=== PATIENT | female | born 1945 | race Caucasian/White ===

== ENCOUNTER → 2017-02-26 | Outpatient (CLI) | payer OTHER ==
[2016-12-06 22:26] VITALS: BP 129/63
[2017-02-26 12:50] LABS: ALBUMIN 3.3 g/dL (3.4-5.0); CARBON DIOXIDE 29.6 mmol/L (21-32); CHOL/HDL RATIO 3.7 (0.0-5.0); COR CA(FOR HYPOALB) 9.6 mg/dL (8.5-10.1); CREATININE 1.37 mg/dL (0.55-1.02); PHOSPHORUS 3.8 mg/dL (2.6-4.7)
[2017-02-26 12:51] LABS: HEMOGLOBIN A1C 8.4 % (4.5-6.2)
[2017-02-26 12:58] LABS: BASOPHILS # (AUTO) 0.1 X10^3/uL (0.0-0.1); BASOPHILS % (AUTO) 0.6 % (0.2-1.0); EOSINOPHILS # (AUTO) 0.2 x10^3/uL (0.0-0.2); EOSINOPHILS % (AUTO) 2.6 % (0.9-2.9); HEMATOCRIT 37.9 % (36.0-47.0); HEMOGLOBIN 12.4 g/dL (12.0-16.0); LYMPHOCYTES # (AUTO) 2.9 X10^3/uL (1.3-2.9); LYMPHOCYTES % (AUTO) 32.7 % (21.0-51.0); MEAN CORPUSCULAR HEMOGLOBIN 28.3 pg (27.0-34.0); MEAN CORPUSCULAR HGB CONC 32.8 g/dL (33.0-35.0); MEAN CORPUSCULAR VOLUME 86.3 fL (80.0-100.0); MEAN PLATELET VOLUME 7.5 fL (7.4-11.0); MONOCYTES # (AUTO) 0.6 x10^3/uL (0.3-0.8); MONOCYTES % (AUTO) 6.6 % (0.0-13.0); NEUTROPHILS # (AUTO) 5.1 x10^3/uL (2.2-4.8); NEUTROPHILS % (AUTO) 57.5 % (42.0-75.0); PLATELET COUNT 293 X10^3/uL (150.0-450.0); RED BLOOD COUNT 4.38 X10^6/uL (3.5-5.4); RED CELL DISTRIBUTION WIDTH 13.5 % (11.6-16.5); WHITE BLOOD COUNT 8.9 X10^3/uL (3.6-10.0)
== END ==
LOC: LAB 12:07
PROVIDERS: ATTEND Internal Medicine
DX: I12.9 Hypertensive chronic kidney disease with stage 1 through stage 4 chronic kidney disease, or unspecified chronic kidney disease (principal); N18.3 Chronic kidney disease, stage 3 (moderate); E11.9 Type 2 diabetes mellitus without complications
CPT/HCPCS: 36415; 80061; 80069; 83036; 84550; 85025

== ENCOUNTER → 2017-06-03 | Outpatient (CLI) | payer OTHER ==
[2016-12-06 22:26] VITALS: BP 129/63
--- NOTE | 2017-06-04 08:25 | RAD ---
History: Low back pain Study: Lumbar spine complete Findings: Multiple views of the lumbar spine are compared to previous study of April 01, 2016. There is a mild to moderate levoscoliosis. Surgical clips in the right upper quadrant are again demonstrat ed. Previous L4 and L5 complete laminectomies are again identified. There is disk space narrowing an d mild to moderate endplate spurring at multiple levels most severe at the L3-4 through L5-S1 levels unchanged from the previous study. There are moderate degenerative changes of the right apophyseal joints. Impression: Spondylosis, degenerative disc disease and osteoarthrosis of the lumbar spine unchanged. Previous L4 and L5 laminectomies. Reported By:
== END | disposition home or self-care (01) | DRG 552 ==
LOC: RAD 17:48
PROVIDERS: ATTEND Specialist
DX: M54.5 Low back pain (principal); M47.896 Other spondylosis, lumbar region; M51.36 Other intervertebral disc degeneration, lumbar region; Z98.890 Other specified postprocedural states
CPT/HCPCS: 72110

== ENCOUNTER → 2017-07-06 | Outpatient (CLI) | payer OTHER ==
[2016-12-06 22:26] VITALS: BP 129/63
[2017-07-06 12:40] LABS: BASOPHILS # (AUTO) 0.1 X10^3/uL (0.0-0.1); BASOPHILS % (AUTO) 0.9 % (0.2-1.0); EOSINOPHILS # (AUTO) 0.2 x10^3/uL (0.0-0.2); EOSINOPHILS % (AUTO) 1.9 % (0.9-2.9); HEMATOCRIT 36.7 % (36.0-47.0); HEMOGLOBIN 12.3 g/dL (12.0-16.0); LYMPHOCYTES # (AUTO) 2.9 X10^3/uL (1.3-2.9); LYMPHOCYTES % (AUTO) 33.2 % (21.0-51.0); MEAN CORPUSCULAR HEMOGLOBIN 28.8 pg (27.0-34.0); MEAN CORPUSCULAR HGB CONC 33.6 g/dL (33.0-35.0); MEAN CORPUSCULAR VOLUME 85.6 fL (80.0-100.0); MEAN PLATELET VOLUME 7.2 fL (7.4-11.0); MONOCYTES # (AUTO) 0.7 x10^3/uL (0.3-0.8); MONOCYTES % (AUTO) 7.7 % (0.0-13.0); NEUTROPHILS # (AUTO) 4.9 x10^3/uL (2.2-4.8); NEUTROPHILS % (AUTO) 56.3 % (42.0-75.0); PLATELET COUNT 299 X10^3/uL (150.0-450.0); RED BLOOD COUNT 4.29 X10^6/uL (3.5-5.4); RED CELL DISTRIBUTION WIDTH 13.7 % (11.6-16.5); WHITE BLOOD COUNT 8.7 X10^3/uL (3.6-10.0)
[2017-07-06 12:53] LABS: HEMOGLOBIN A1C 7.6 % (4.5-6.2)
[2017-07-06 12:55] LABS: ALBUMIN 3.6 g/dL (3.4-5.0); BLOOD UREA NITROGEN 24 mg/dL (7-18); CALCIUM 9.2 mg/dL (8.5-10.1); CARBON DIOXIDE 32.4 mmol/L (21-32); CHLORIDE 100 mmol/L (98-107); CHOL/HDL RATIO 2.7 (0.0-5.0); CHOLESTEROL 144 mg/dL (0-200); CREATININE 1.43 mg/dL (0.55-1.02); HDL CHOLESTEROL 53 mg/dL (40-60); PHOSPHORUS 3.9 mg/dL (2.6-4.7); SODIUM 138 mmol/L (136-145); TRIGLYCERIDES 175 mg/dL (0-150); eGFR BLACK RACES 47 (>60); eGFR NON BLACK RACES 39 (>60)
== END | disposition home or self-care (01) | DRG 639 ==
LOC: LAB 12:18
PROVIDERS: ATTEND Internal Medicine
DX: E11.9 Type 2 diabetes mellitus without complications (principal); I12.9 Hypertensive chronic kidney disease with stage 1 through stage 4 chronic kidney disease, or unspecified chronic kidney disease; N18.3 Chronic kidney disease, stage 3 (moderate)
CPT/HCPCS: 36415; 80061; 80069; 83036; 85025

== ENCOUNTER → 2017-10-05 | Outpatient (CLI) | payer OTHER ==
[2016-12-06 22:26] VITALS: BP 129/63
[2017-10-05 10:46] LABS: HEMOGLOBIN A1C 7.5 % (4.5-6.2)
[2017-10-05 10:53] LABS: BASOPHILS % (AUTO) 0.6 % (0.2-1.0); EOSINOPHILS # (AUTO) 0.2 x10^3/uL (0.0-0.2); EOSINOPHILS % (AUTO) 2.2 % (0.9-2.9); HEMATOCRIT 36.4 % (36.0-47.0); HEMOGLOBIN 12.2 g/dL (12.0-16.0); LYMPHOCYTES # (AUTO) 1.9 X10^3/uL (1.3-2.9); LYMPHOCYTES % (AUTO) 27.9 % (21.0-51.0); MEAN CORPUSCULAR HGB CONC 33.4 g/dL (33.0-35.0); MEAN CORPUSCULAR VOLUME 86.8 fL (80.0-100.0); MEAN PLATELET VOLUME 7.4 fL (7.4-11.0); MONOCYTES # (AUTO) 0.5 x10^3/uL (0.3-0.8); MONOCYTES % (AUTO) 7.5 % (0.0-13.0); NEUTROPHILS # (AUTO) 4.3 x10^3/uL (2.2-4.8); NEUTROPHILS % (AUTO) 61.8 % (42.0-75.0); PLATELET COUNT 311 X10^3/uL (150.0-450.0); RED CELL DISTRIBUTION WIDTH 13.5 % (11.6-16.5); WHITE BLOOD COUNT 6.9 X10^3/uL (3.6-10.0)
[2017-10-05 10:56] LABS: ALBUMIN 3.2 g/dL (3.4-5.0); CALCIUM 8.7 mg/dL (8.5-10.1); CARBON DIOXIDE 31.3 mmol/L (21-32); CHOL/HDL RATIO 2.8 (0.0-5.0); COR CA(FOR HYPOALB) 9.3 mg/dL (8.5-10.1); CREATININE 1.27 mg/dL (0.55-1.02); FREE T4 (FREE THYROXINE) 1.03 ng/dL (0.76-1.46); PHOSPHORUS 3.5 mg/dL (2.6-4.7); TSH (3RD GENERATION) 0.932 uIU/mL (0.358-3.74); URIC ACID 4.6 mg/dL (2.6-6.0)
== END ==
LOC: LAB 10:14
PROVIDERS: ATTEND Internal Medicine
DX: I12.9 Hypertensive chronic kidney disease with stage 1 through stage 4 chronic kidney disease, or unspecified chronic kidney disease (principal); N18.3 Chronic kidney disease, stage 3 (moderate); E11.22 Type 2 diabetes mellitus with diabetic chronic kidney disease; E03.8 Other specified hypothyroidism
CPT/HCPCS: 36415; 80061; 80069; 83036; 84439; 84443; 84550; 85025

== ENCOUNTER → 2017-11-30 | Outpatient (CLI) | payer OTHER ==
[2016-12-06 22:26] VITALS: BP 129/63
[2017-11-30 16:45] LABS: BASOPHILS # (AUTO) 0.1 X10^3/uL (0.0-0.1); BASOPHILS % (AUTO) 0.7 % (0.2-1.0); EOSINOPHILS # (AUTO) 0.3 x10^3/uL (0.0-0.2); HEMATOCRIT 37.3 % (36.0-47.0); HEMOGLOBIN 12.7 g/dL (12.0-16.0); LYMPHOCYTES # (AUTO) 3.1 X10^3/uL (1.3-2.9); LYMPHOCYTES % (AUTO) 33.6 % (21.0-51.0); MEAN CORPUSCULAR HEMOGLOBIN 29.3 pg (27.0-34.0); MEAN CORPUSCULAR VOLUME 86.2 fL (80.0-100.0); MONOCYTES # (AUTO) 0.6 x10^3/uL (0.3-0.8); MONOCYTES % (AUTO) 6.9 % (0.0-13.0); NEUTROPHILS # (AUTO) 5.2 x10^3/uL (2.2-4.8); NEUTROPHILS % (AUTO) 55.8 % (42.0-75.0); PLATELET COUNT 329 X10^3/uL (150.0-450.0); RED BLOOD COUNT 4.33 X10^6/uL (3.5-5.4); RED CELL DISTRIBUTION WIDTH 13.2 % (11.6-16.5); WHITE BLOOD COUNT 9.3 X10^3/uL (3.6-10.0)
[2017-11-30 16:52] LABS: ALBUMIN 3.3 g/dL (3.4-5.0); CALCIUM 9.1 mg/dL (8.5-10.1); CARBON DIOXIDE 32.7 mmol/L (21-32); COR CA(FOR HYPOALB) 9.7 mg/dL (8.5-10.1); CREATININE 1.36 mg/dL (0.55-1.02); TOTAL PROTEIN 7.5 g/dL (6.4-8.2)
== END ==
LOC: LAB 16:05
PROVIDERS: ATTEND Nurse Practitioner Family
DX: I10 Essential (primary) hypertension (principal); E56.8 Deficiency of other vitamins; Z79.899 Other long term (current) drug therapy
CPT/HCPCS: 36415; 80053; 82607; 83918; 85025

== ENCOUNTER → 2018-02-08 | Outpatient (CLI) | payer OTHER ==
[2016-12-06 22:26] VITALS: BP 129/63
[2018-02-08 11:38] LABS: BASOPHILS # (AUTO) 0.1 X10^3/uL (0.0-0.1); BASOPHILS % (AUTO) 0.9 % (0.2-1.0); EOSINOPHILS # (AUTO) 0.2 x10^3/uL (0.0-0.2); HEMATOCRIT 36.6 % (36.0-47.0); HEMOGLOBIN 12.3 g/dL (12.0-16.0); LYMPHOCYTES # (AUTO) 3.6 X10^3/uL (1.3-2.9); LYMPHOCYTES % (AUTO) 36.2 % (21.0-51.0); MEAN CORPUSCULAR HEMOGLOBIN 29.5 pg (27.0-34.0); MEAN CORPUSCULAR HGB CONC 33.7 g/dL (33.0-35.0); MEAN CORPUSCULAR VOLUME 87.5 fL (80.0-100.0); MEAN PLATELET VOLUME 6.9 fL (7.4-11.0); MONOCYTES # (AUTO) 0.7 x10^3/uL (0.3-0.8); MONOCYTES % (AUTO) 7.4 % (0.0-13.0); NEUTROPHILS # (AUTO) 5.3 x10^3/uL (2.2-4.8); NEUTROPHILS % (AUTO) 53.5 % (42.0-75.0); PLATELET COUNT 384 X10^3/uL (150.0-450.0); RED BLOOD COUNT 4.18 X10^6/uL (3.5-5.4); RED CELL DISTRIBUTION WIDTH 14.3 % (11.6-16.5); WHITE BLOOD COUNT 9.8 X10^3/uL (3.6-10.0)
[2018-02-08 11:47] LABS: HEMOGLOBIN A1C 7.3 %
[2018-02-08 11:54] LABS: CREATININE,URINE 137.81 mg/dL (29-226)
[2018-02-08 11:56] LABS: ALBUMIN 3.3 g/dL (3.4-5.0); CALCIUM 8.8 mg/dL (8.5-10.1); CARBON DIOXIDE 29.9 mmol/L (21-32); COR CA(FOR HYPOALB) 9.4 mg/dL (8.5-10.1); CREATININE 1.51 mg/dL (0.55-1.02); FREE T4 (FREE THYROXINE) 1.24 ng/dL (0.76-1.46); TOTAL PROTEIN 7.4 g/dL (6.4-8.2); TSH (3RD GENERATION) 3.422 uIU/mL (0.358-3.74)
[2018-02-08 11:58] LABS: MICROALBUMIN,URINE 97.5 mg/L
== END ==
LOC: LAB 11:01
PROVIDERS: ATTEND Nurse Practitioner Family
DX: E78.4 Other hyperlipidemia (principal); I10 Essential (primary) hypertension; E11.21 Type 2 diabetes mellitus with diabetic nephropathy; E03.8 Other specified hypothyroidism
CPT/HCPCS: 36415; 80053; 80061; 82043; 83036; 84439; 84443; 84481; 85025

== ENCOUNTER → 2018-03-08 | Outpatient (CLI) | payer OTHER ==
[2016-12-06 22:26] VITALS: BP 129/63
[2018-03-08 11:20] LABS: BASOPHILS % (AUTO) 0.3 % (0.2-1.0); EOSINOPHILS # (AUTO) 0.2 x10^3/uL (0.0-0.2); EOSINOPHILS % (AUTO) 2.3 % (0.9-2.9); HEMATOCRIT 37.5 % (36.0-47.0); HEMOGLOBIN 12.5 g/dL (12.0-16.0); LYMPHOCYTES # (AUTO) 3.8 X10^3/uL (1.3-2.9); LYMPHOCYTES % (AUTO) 37.2 % (21.0-51.0); MEAN CORPUSCULAR HEMOGLOBIN 29.6 pg (27.0-34.0); MEAN CORPUSCULAR HGB CONC 33.4 g/dL (33.0-35.0); MEAN CORPUSCULAR VOLUME 88.4 fL (80.0-100.0); MONOCYTES # (AUTO) 0.7 x10^3/uL (0.3-0.8); MONOCYTES % (AUTO) 7.1 % (0.0-13.0); NEUTROPHILS # (AUTO) 5.5 x10^3/uL (2.2-4.8); NEUTROPHILS % (AUTO) 53.1 % (42.0-75.0); PLATELET COUNT 367 X10^3/uL (150.0-450.0); RED BLOOD COUNT 4.25 X10^6/uL (3.5-5.4); RED CELL DISTRIBUTION WIDTH 13.5 % (11.6-16.5); WHITE BLOOD COUNT 10.3 X10^3/uL (3.6-10.0)
[2018-03-08 11:32] LABS: HEMOGLOBIN A1C 7.7 %
[2018-03-08 11:38] LABS: ALBUMIN 3.4 g/dL (3.4-5.0); BLOOD UREA NITROGEN 15 mg/dL (7-18); CALCIUM 8.4 mg/dL (8.5-10.1); CARBON DIOXIDE 29.8 mmol/L (21-32); CHLORIDE 101 mmol/L (98-107); CHOL/HDL RATIO 2.8 (0.0-5.0); CHOLESTEROL 145 mg/dL (0-200); CREATININE 1.51 mg/dL (0.55-1.02); HDL CHOLESTEROL 51 mg/dL (40-60); PHOSPHORUS 4.5 mg/dL (2.6-4.7); SODIUM 140 mmol/L (136-145); TRIGLYCERIDES 160 mg/dL (0-150); eGFR BLACK RACES 44 (>60); eGFR NON BLACK RACES 36 (>60)
[2018-03-08 11:46] LABS: CREATININE,URINE 109.96 mg/dL (29-226)
[2018-03-08 11:47] LABS: MICROALBUMIN,URINE 124.7 mg/L
--- NOTE | 2018-03-08 15:51 | RAD ---
HISTORY: Chronic back pain Study: 3 views of the thoracic spine. Comparison: None Findings: Mild dextroscoliosis of the thoracic spine. Significant multilevel degenerative disc disease. Verteb ral body heights are grossly maintained. IMPRESSION: 1. Multilevel degenerative disc disease. Reported By:
--- NOTE | 2018-03-08 15:51 | RAD ---
HISTORY: Nontraumatic back pain Study: 5 views of the lumbar spine Comparison: None. Findings: Mild levoscoliosis. Severe multilevel degenerative disc disease with facet disease as well. Vertebra l body heights are normal. Sacroiliac joints are unremarkable. No evidence for acute fracture can be identified. IMPRESSION: 1. Severe multilevel degenerative disc and facet disease. Reported By:
== END | disposition home or self-care (01) | DRG 639 ==
LOC: LAB 10:53
PROVIDERS: ATTEND Nurse Practitioner Family
DX: E11.9 Type 2 diabetes mellitus without complications (principal); E78.4 Other hyperlipidemia; I12.9 Hypertensive chronic kidney disease with stage 1 through stage 4 chronic kidney disease, or unspecified chronic kidney disease; N18.3 Chronic kidney disease, stage 3 (moderate); M54.5 Low back pain; M54.6 Pain in thoracic spine
CPT/HCPCS: 36415; 72072; 72110; 80061; 80069; 82043; 83036; 85025

== ENCOUNTER 2023-05-21 13:35 | Observation (INO) ==
--- NOTE | 2023-05-21 14:07 | DR.EXTPAIN ---
HPI Time seen Time Seen by Provider: 05/21/23 14:05 Complaint/Symptoms Chief Complaint Doctor Comments: FELL 3 DAYS AGO, NOW HAS HEAD,NECK AND LOW BACK PAIN. PMH PMH Past Medical History: Anxiety, Arthritis, Diabetes, Dyslipidemia, Migraines and Hypothyroidism Past Surgical History: Yes Surgical History: Cholecystectomy and Ortho Surgery Family History Family Medical History: Cancer Social History Do you use any recreational Drugs:: No ROS Review of Systems Constitutional: Other (HEAD NECK AND LOW BACK PAIN AFTER A FALL) Eyes: No Symptoms Reported ENTM: No Symptoms Reported Respiratoy: No Symptoms Reported Cardiovascular: No Symptoms Reported Gastrointestinal/Abdominal: No Symptoms Reported Genitourinary: No Symptoms Reported Neurological: No Symptoms Reported Musculoskeletal: Back Pain, Muscle Pain and Neck Pain Integumentary: No Symptoms Reported Hematologic/Lymphatic: No Symptoms Reported Endocrine: No Symptoms Reported Psychiatric: No Symptoms Reported PE Vital Signs Vitals: Vital Signs Temperature 98.1 F Pulse Rate 76 Pulse Rate 74 Pulse Rate 76 Pulse Rate 74 Pulse Rate 75 Pulse Rate 75 Pulse Rate 80 Pulse Rate 76 Pulse Rate 75 Pulse Rate 74 Pulse Rate 86 Respiratory Rate 16 Respiratory Rate 14 Respiratory Rate 19 Respiratory Rate 17 Respiratory Rate 19 Respiratory Rate 12 Respiratory Rate 23 Respiratory Rate 11 Respiratory Rate 13 Respiratory Rate 12 Respiratory Rate 16 Blood Pressure 151/67 Blood Pressure 159/69 Blood Pressure 161/69 Blood Pressure 151/68 Blood Pressure 150/66 Blood Pressure 151/69 Blood Pressure 177/71 O2 Sat by Pulse Oximetry 100 O2 Sat by Pulse Oximetry 99 O2 Sat by Pulse Oximetry 100 O2 Sat by Pulse Oximetry 97 O2 Sat by Pulse Oximetry 97 O2 Sat by Pulse Oximetry 96 O2 Sat by Pulse Oximetry 99 O2 Sat by Pulse Oximetry 97 O2 Sat by Pulse Oximetry 97 O2 Sat by Pulse Oximetry 98 O2 Sat by Pulse Oximetry 96 General Limitations: Physical Limitation (CAN NOT AMBULATE 2ND TO PAIN IN LOW BACK) General Appearance: In Distress (MODERATE DISTRESS) Head Head Exam: Normal Inspection, Atraumatic and Normocephalic Eyes Eye exam: Normal Appearance, PERRL and EOMI ENT ENT Exam: Normal Exam, Normal Oropharynx and Normal External Ear Exam Neck Neck Exam: Normal Inspection, Full ROM and Trachea Midline Chest Chest Inspection: Normal Inspection and Symmetric Chest Wall Rise Respiratory Respiratory Exam: Normal Lung Sounds Bilat Respiratory Exam: Bilateral: Clear to Auscultation Cardiovascular Cardiovascular Exam: Regular Rate and Normal Rhythm Abdominal Exam Abdominal Exam: Normal Inspection, Normal Bowel Sounds and Soft Extremities Extremities Exam: Normal Inspection Upper Extremities Shoulder Exam: Normal Inspection and Full ROM Arm Exam: Normal Inspection Elbow Exam: Normal Inspection Forearm Exam: Normal Inspection Hand Exam: Normal Inspection Neuromotor Exam: Normal Exam Lower Extremities Hip/Pelvis Exam: Normal Inspection Upper Leg Exam: Normal Inspection Knee Exam: Normal Inspection Lower Leg Exam: Normal Inspection Ankle Exam: Normal Inspection Foot/Toe Exam: Normal Inspection Gait Exam: Not Tested/Not Observed Back Back Exam: Tenderness (LOW LUMBAR AREA) Neurological Neurological Exam: Alert, Oriented X3 and CN II-XII Intact Psychiatric Psychiatric Exam: Depressed Skin Skin Exam: Warm, Dry and Intact MDM Differential Diagnosis Differential Diagnosis: Contusion (HEAD), Fracture (SKULL FRACTURE) and Sprain (LUMBAR STRAIN) COURSE Treatment Treatment: PATIENT REMAINED RELATIVELY STABLE DURINGER EVALUATION. CT OF HEAD SH OWER R PARIAETAL CONTUSION BUT NO FRACTURE. CT OF C-SPINE AND L-SPINE SHOWED DEGENERATIVE CHANGES WITHOUT FRACTURE. CONTACT WAS MADE WITH DR DANIELS [id number] ABD HE ACCEPTED THE PATIENT FOR OBSERVATION FOR DECONDITIONING AND PAIN MANAGEMENT. PATIENT WAS MADE AWARE OF THE INTENT AND WAS AGREABLE TO THE ADMISSION. [facility]OR Labs Reviewed Laboratory Results Reviewed?: Yes 05/21/23 14:28 05/21/23 14:28 Laboratory: WBC 8.6 X10^3/uL (3.6-10.0) 05/21/23 14: RBC 3.95 X10^6/uL (3.5-5.4) 05/21/23 14:28 Hgb 10.5 g/dL (12.0-16.0) L 05/21/23 14:28 Hct 33.1 % (36.0-47.0) L 05/21/23 14:28 MCV 83.9 fL (80.0-100.0) 05/21/23 14: MCH 26.7 pg (27.0-34.0) L 05/21/23 14:28 MCHC 31.8 g/dL (33.0-35.0) L 05/21/23 14:28 RDW 15.0 % (11.6-16.5) 05/21/23 14:28 Plt Count 283 X10^3/uL (150.0-450.0) 05/21/23 14:28 MPV 7.5 fL (7.4-11.0) 05/21/23 14:28 Neut % (Auto) 66.1 % (42.0-75.0) 05/21/23 14:28 Lymph % (Auto) 22.2 % (21.0-51.0) 05/21/23 14:28 [place] % (Auto) 7.6 % (0.0-13.0) 05/21/23 14:28 Eos % (Auto) 3.3 % (0.9-2.9) H 05/21/23 14:28 Baso % (Auto) 0.8 % (0.2-1.0) 05/21/23 14:28 Neut # (Auto) 5.7 x10^3/uL (2.2-4.8) H 05/21/23 14:28 Lymph # (Auto) 1.9 X10^3/uL (1.3-2.9) 05/21/23 14:28 [place] # (Auto) 0.7 x10^3/uL (0.3-0.8) 05/21/23 14:28 Eos # (Auto) 0.3 x10^3/uL (0.0-0.2) H 05/21/23 14:28 Baso # (Auto) 0.1 X10^3/uL (0.0-0.1) 05/21/23 14:28 Absolute Nucleated RBC 0.0 /100WBC 05/21/23 14:28 Sodium 135 mmol/L (136-145) L 05/21/23 14:28 Corrected Sodium 140 mmol/L (136-145) 05/21/23 14:28 Potassium 4.4 mmol/L (3.5-5.1) 05/21/23 14:28 Chloride 98 mmol/L (98-107) 05/21/23 14:28 Carbon Dioxide 30.7 mmol/L (21-32) 05/21/23 14:28 BUN 30 mg/dL (7-18) H 05/21/23 14:28 Creatinine 2.08 mg/dL (0.55-1.02) H 05/21/23 14:28 Est GFR (MDRD) Af Amer 30 (>60) L 05/21/23 14:28 Est GFR (MDRD) Non-Af 25 (>60) L 05/21/23 14:28 Glucose 304 mg/dL (65-99) H 05/21/23 14:28 Calcium 8.4 mg/dL (8.5-10.1) L 05/21/23 14:28 Corrected Calcium 9.1 mg/dL (8.5-10.1) 05/21/23 14:28 Total Bilirubin 0.10 mg/dL (0.2-1.0) L 05/21/23 14:28 AST 75 Units/L (15-37) H 05/21/23 14:28 ALT 27 Units/L (12-78) 05/21/23 14:28 Alkaline Phosphatase 97 Units/L (46-116) 05/21/23 14:28 Total Protein 6.5 g/dL (6.4-8.2) 05/21/23 14:28 Albumin 3.1 g/dL (3.4-5.0) L 05/21/23 14:28 Globulin 3.4 g/dL (2.5-4.5) 05/21/23 14:28 Albumin/Globulin Ratio 0.9 Ratio (1.1-2.1) L 05/21/23 14:28 Opioid Opioid Risk Tool Total: 0 Total Score Risk Category: Low Risk Copyright: Turner BOWLING predicting aberrant behaviors Discharge Plan Diagnosis Discharge Problem: Physical deconditioning, Hyperglycemia, Chronic pain Discharge Plan Patient Disposition: 09 ADMITTED INPATIENT Condition: Stable Orders to Discharge Patient Discharge Orders: Discharge (Routine); Ordered 05/21/23 Ordered By: Alfonso Jiménez Transfer (Routine); Ordered 05/21/23 Ordered By: Alfonso Jiménez
[2023-05-21 14:32] VITALS: BMI 35.2
[2023-05-21 14:41] LABS: BASOPHILS # (AUTO) 0.1 X10^3/uL (0.0-0.1); BASOPHILS % (AUTO) 0.8 % (0.2-1.0); EOSINOPHILS # (AUTO) 0.3 x10^3/uL (0.0-0.2); EOSINOPHILS % (AUTO) 3.3 % (0.9-2.9); HEMATOCRIT 33.1 % (36.0-47.0); HEMOGLOBIN 10.5 g/dL (12.0-16.0); LYMPHOCYTES # (AUTO) 1.9 X10^3/uL (1.3-2.9); LYMPHOCYTES % (AUTO) 22.2 % (21.0-51.0); MEAN CORPUSCULAR HEMOGLOBIN 26.7 pg (27.0-34.0); MEAN CORPUSCULAR HGB CONC 31.8 g/dL (33.0-35.0); MEAN CORPUSCULAR VOLUME 83.9 fL (80.0-100.0); MEAN PLATELET VOLUME 7.5 fL (7.4-11.0); MONOCYTES # (AUTO) 0.7 x10^3/uL (0.3-0.8); MONOCYTES % (AUTO) 7.6 % (0.0-13.0); NEUTROPHILS # (AUTO) 5.7 x10^3/uL (2.2-4.8); NEUTROPHILS % (AUTO) 66.1 % (42.0-75.0); PLATELET COUNT 283 X10^3/uL (150.0-450.0); RED BLOOD COUNT 3.95 X10^6/uL (3.5-5.4); WHITE BLOOD COUNT 8.6 X10^3/uL (3.6-10.0)
[2023-05-21 14:57] LABS: ALBUMIN 3.1 g/dL (3.4-5.0); CALCIUM 8.4 mg/dL (8.5-10.1); CARBON DIOXIDE 30.7 mmol/L (21-32); COR CA(FOR HYPOALB) 9.1 mg/dL (8.5-10.1); CREATININE 2.08 mg/dL (0.55-1.02); POTASSIUM 4.4 mmol/L (3.5-5.1); TOTAL PROTEIN 6.5 g/dL (6.4-8.2)
--- NOTE | 2023-05-21 15:37 | CT ---
HISTORYFALL, MACKAY, NECK AND BACK PAINSTUDYBRAIN W/O CONCOMPARISONNone availableTECHNIQUEMultiple helical images of the brain from the vertex to the occiput were obtained. Coronal and sagittal reformats were performed. Dose reduction techniques including Automated Exposure Control (AEC) and adjustment of mA and kV were utilized.FINDINGSModerate-sized contusion posterior right frontal scalp. There is diffuse cerebral cortical atrophy with bilateral periventricular and deep white matter hypoattenuation, findings are nonspecific; however, most likely represent sequela of chronic microvascular disease.[No acute intraparenchymal hemorrhage or mass can be identified.] [No extra-axial fluid collections are seen.] [No alteration in the attenuation of the brain parenchyma can be identified to suggest acute or subacute ischemic change.] [The ventricular system is symmetric and nondilated.] [The extracranial structures are grossly unremarkable.]IMPRESSIONModerate-sized posterior right parietal scalp contusion without subjacent fracture.No acute intracranial hemorrhage.Moderate diffuse cerebral cortical atrophy with bilateral periventricular and deep white matter hypoattenuation, findings are nonspecific; however, most likely represent sequela of chronic microvascular disease.Electronically signed by: CARMELO DONOVAN (May 21, 2023 15:36:38)
--- NOTE | 2023-05-21 15:39 | CT ---
HISTORYFALL, MACKAY, NECK AND BACK PAINSTUDYLUMBAR SPINE W/O CONCOMPARISONTECHNIQUEMultiple axial images of the lumbar spine were obtained from the thoracolumbar junction to the sacrum without the administration of IV contrast. Sagittal and coronal reformats were performed and reviewed. Dose reduction techniques including Automated Exposure Control (AEC) and adjustment of mA and kV were utilized.FINDINGSThere is approximately 14 degrees of levoscoliosis in the lower thoracic and in the lumbar spine. There is fusion at the L4-L5 disc and there has been a posterior decompression. There is multilevel disc degeneration. There is no vertebral compression fracture identified. There is no fracture of the posterior elements. There is no significant spinal stenosis at any level. There is moderate right L3 neural foraminal narrowing. There is moderate systemic atherosclerosis. There is no evidence of a sacral fracture.IMPRESSIONDegenerative and postsurgical change as described but no acute abnormality identified.Electronically signed by: Troy Padilla (May 21, 2023 15:37:26)
--- NOTE | 2023-05-21 15:52 | CT ---
HISTORYFALL, MACKAY, NECK AND BACK PAINSTUDYCERVICAL SPINE W/O CONCOMPARISONTECHNIQUEMultiple axial images of the cervical spine were obtained from the skull base to the thoracic inlet without administration of IV contrast. Sagittal and coronal reformats were performed and reviewed. Dose reduction techniques including Automated Exposure Control (AEC) and adjustment of mA and kV were utilized.FINDINGSThe alignment is anatomic. There is no vertebral compression fracture. There is fairly severe atlantoaxial degeneration and disc degeneration from C4-C7 with prominent posterior disc osteophyte formation. There is facet hypertrophy but there is no fracture of the posterior elements. Fluid is noted in the right mastoid. There is narrowing of the AP dimension of spinal canal at the C4-C5 level to 7 mm which is moderate spinal stenosis. At C5-C6 there is left paracentral disc osteophyte formation which likely impinges the left side of the cord. The AP dimension of the spinal canal is 8 mm at the C6-C7 level. There is severe left C5 and left C6 neural foraminal narrowing.IMPRESSIONDegeneration as described but no acute abnormality.Electronically signed by: Troy Padilla (May 21, 2023 15:51:36)
[2023-05-21] MEDS ORDERED: NORCO 10/325 TAB PO PRN (17:34)
[2023-05-21 18:34] LABS: BILIRUBIN,URINE NEGATIVE (NEGATIVE); BLOOD/HEMOGLOBIN,URINE NEGATIVE (NEGATIVE); GLUCOSE, URINE 1+ (NEGATIVE); KETONES,URINE NEGATIVE (NEGATIVE); LEUKOCYTE ESTERASE ,URINE NEGATIVE (NEGATIVE); NITRITES,URINE NEGATIVE (NEGATIVE); PROTEIN,URINE 2+ (NEGATIVE); UROBILINOGEN,URINE NORMAL (NORMAL)
[2023-05-21 18:44] LABS: APPEARANCE,URINE CLEAR (CLEAR); BACTERIA,URINE NEGATIVE /HPF (NEGATIVE); COLOR,URINE YELLOW (YELLOW); RBC,URINE NONE SEEN /HPF (0-3); SQUAMOUS EPITHELIAL CELL,UR RARE /HPF (NEGATIVE)
[2023-05-21] MEDS ORDERED: DEMADEX PO PRN (18:58)
[2023-05-21] MEDS: SNACK - Diabetic Appropriate PO SCH (19:30)
[2023-05-21] MEDS: LIORESAL PO SCH (21:29)
[2023-05-21] MEDS: CRESTOR TAB 10 MG PO SCH (21:29)
[2023-05-21] MEDS: LANTUS SC SCH (21:29)
[2023-05-22 06:07] LABS: BASOPHILS % (AUTO) 0.6 % (0.2-1.0); EOSINOPHILS # (AUTO) 0.3 x10^3/uL (0.0-0.2); EOSINOPHILS % (AUTO) 3.6 % (0.9-2.9); HEMATOCRIT 32.4 % (36.0-47.0); HEMOGLOBIN 10.5 g/dL (12.0-16.0); LYMPHOCYTES # (AUTO) 3.2 X10^3/uL (1.3-2.9); LYMPHOCYTES % (AUTO) 41.5 % (21.0-51.0); MEAN CORPUSCULAR HEMOGLOBIN 26.9 pg (27.0-34.0); MEAN CORPUSCULAR HGB CONC 32.4 g/dL (33.0-35.0); MEAN CORPUSCULAR VOLUME 83.1 fL (80.0-100.0); MEAN PLATELET VOLUME 7.5 fL (7.4-11.0); MONOCYTES # (AUTO) 0.6 x10^3/uL (0.3-0.8); MONOCYTES % (AUTO) 8.2 % (0.0-13.0); NEUTROPHILS # (AUTO) 3.6 x10^3/uL (2.2-4.8); NEUTROPHILS % (AUTO) 46.1 % (42.0-75.0); PLATELET COUNT 291 X10^3/uL (150.0-450.0); RED CELL DISTRIBUTION WIDTH 14.6 % (11.6-16.5); WHITE BLOOD COUNT 7.8 X10^3/uL (3.6-10.0)
[2023-05-22 06:31] LABS: ALANINE AMINOTRANSFERASE 26 Units/L (12-78); ALBUMIN 2.9 g/dL (3.4-5.0); ALKALINE PHOSPHATASE 91 Units/L (46-116); ASPARTATE AMINO TRANSFERASE 62 Units/L (15-37); BLOOD UREA NITROGEN 24 mg/dL (7-18); CALCIUM 8.4 mg/dL (8.5-10.1); CARBON DIOXIDE 29.9 mmol/L (21-32); CHLORIDE 100 mmol/L (98-107); COR CA(FOR HYPOALB) 9.3 mg/dL (8.5-10.1); CREATININE 1.52 mg/dL (0.55-1.02); GLUCOSE 99 mg/dL (65-99); POTASSIUM 3.8 mmol/L (3.5-5.1); SODIUM 136 mmol/L (136-145); TOTAL PROTEIN 6.2 g/dL (6.4-8.2); eGFR NON BLACK RACES 35 (>60)
[2023-05-22] MEDS ORDERED: CONSULT PHARMACY - POTASSIUM & MAGNESIUM XX SCH (07:00)
[2023-05-22] MEDS ORDERED: LEXAPRO ONE (08:19)
[2023-05-22] MEDS ORDERED: K-DUR TAB 20 MEQ PO SCH (09:00)
[2023-05-22] MEDS: LOTENSIN TAB 10 MG PO SCH (09:30)
[2023-05-22] MEDS: LIORESAL PO SCH ×4 (09:30→20:37)
[2023-05-22] MEDS: AMARYL TAB 4 MG PO SCH (09:30)
[2023-05-22] MEDS: LEXAPRO PO SCH (09:31)
[2023-05-22] MEDS: ASPIRIN 81 MG CHEWTAB PO SCH (09:32)
[2023-05-22] MEDS: SYNTHROID 112 mcg TAB PO SCH (09:32)
[2023-05-22] MEDS: MAG-OX TAB PO SCH ×2 (09:33→11:02)
[2023-05-22] MEDS: NORCO 10/325 TAB PO PRN ×2 (09:35→15:59)
[2023-05-22] MEDS: NS 1,000 ML IV 1,000 ML IV SCH ×2 (11:01→22:51)
--- NOTE | 2023-05-22 11:25 | RAD ---
HISTORYSOBSTUDYPortable AP chestCOMPARISONNoneFINDINGSHeart size normal with clear lungs and pleural spaces. Surgical hardware left shoulder.IMPRESSIONNo active chest disease demonstrated.Electronically signed by: MELISSA GONZALEZ (May 22, 2023 11:24:28)
[2023-05-22] MEDS: TORADOL 30 MG VIAL IVP PRN ×2 (11:56→20:40)
--- NOTE | 2023-05-22 17:32 | DR.H&P ---
H&P - History & Physical for Day of: H&P Date: 05/21/23 ([facility]) - Chief Complaint Chief Complaint: HEAD, NECK, AND LOW BACK PAIN - History of Present Illness History of Present Illness: IS A 78 YEAR OLD PATIENT OF . SHE PRESENTED TO THE ER WITH COMPLAINTS OF HEAD, NECK, AND LOW BACK PAIN FOLLOWING A FALL 3 DAYS AGO. SHE DESCRIBES HEADACHE CONSTANT AND TROBBING. SHE RATES PAIN A 6/10. SHE DESCRIBES NECK AND BACK PAIN DULL AND INTERMITTENT. SHE RATES PAIN A 8/10. SHE DOES ADMIT TO HITTING THE RIGHT SIDE OF HER HEAD WHEN SHE FELL, BUT DENIES LOSS OF CONSCIOUSNESS. SHE REPORTS DIFFICULTY AMBULATING DUE TO SEVERE PAIN IN LOWER BACK. HER PMH INCLUDES: ANXIETY, ARTHRITIS, DM II, DYSLIPIDEMIA, MIGRAINES, HYPOTHYROIDISM, CHOLECYSTECTOMY, AND ORTHO SURGERY. ON ARRIVAL TO THE ER, HER VITALS WERE: 98.1-86-16-96%-177/71. LABS WERE OBTAINED. WBC 8.6, RBC 3.95, HGB 10.5, HCT 33.1, PLT COUNT 283, SODIUM 135, POTASSIUM 4.4, CHLORIDE 98, BUN 30, CREATININE 2.08, GLUCOSE 304, CALCIUM 8.4, TOTAL BILI 0.10, AST 75, ALT 27, ALK PHOS 97, TOTAL PROTEIN 6.5, ALBUMIN 3.1. A URINALYSIS WAS OBTAINED AND WAS UNREMARKABLE. A BRAIN CT WITHOUT CONTRAST WAS OBTAINED AND REVEALED: Moderate-sized posterior right parietal scalp contusi on without subjacent fracture. No acute intracranial hemorrhage. Moderate diffuse cerebral cortical atrophy with bilateral periventricular and deep white matter hypoattenuation, findings are nonspecific; however, most likely represent sequela of chronic microvascular disease. CT OF THE CERVICAL SPINE WAS OBRTAINED: Degeneration as described but no acute abnormality. A LUMBAR SPINE CT WAS OBTAINED AND REVEALED: There is approximately 14 degrees of levoscoliosis in the lower thoracic and in the lumbar spine. There is fusion at the L4-L5 disc and there has been a posterior decompression. There is multilevel. disc degeneration. There is no vertebral compression fracture identified. There is no fracture of the posterior elements. There is no significant spinal stenosis at any level. There is moderate right L3 neural foraminal narrowing. There is moderate systemic atherosclerosis. There is no evidence of a sacral. fracture. IN THE ER, SHE WAS GIVEN NORCO 10/325MG PO X 1 DOSE, K-DUR 20MEQ PO X 1, AD MG OX 800MG PO Q12H. SHE DENIED IMPROVEMENT IN PAIN AFTER RECEIVING THE NORCO. DECISION WAS MADE TO ADMIT PATIENT TO THE HOSPITAL FOR FURTHER EVALUATION AND TREATMENT OF DECONDITIONING, INTRACTABLE PAIN, AND HYPERGLYCEMIA, DM II. SHE WAS STARTED ON NORMAL SALINE AT 75 ML/HR, OTBS ACHS, HUMULIN R SLIDING SCALE, TORADOL 30MG IV Q8H. HER HOME MEDS OF ASPIRIN, LIORESAL, LOTENSIN, VALIUM, LEOLA APRO, AMARYL, LANTUS, SYNTHROID, AND ROSUVASTATIN WERE RESUMED. WE WILL OBTIN A LEFT HIP XRAY THIS MORNING. OTHERWISE, WE WILL FOLLOW UP WITH AM LABS AND CONTINUE TO MONITOR. TIME SPENT ON CLINICAL ASSESSMENT, REVIEWING LABS AND IMAGING, DECISION MAKING, AND DOCUMENTATION GREATER THAN 45 MINUTES. - Past Medical History Past Medical History: Dyslipidemia, Diabetes, Anxiety, Hypothyroidism, Arthritis, Migraines - Past Surgical History Surgical History: Cholecystectomy, Ortho Surgery - Family History Family Medical History: Cancer - Social History Does patient currently use any type of tobacco product: No Have you used tobacco products in the last 12 months: No Type of Tobacco Use: None Does any household member use tobacco: No Alcohol Use: None Drug Use: None - Review of Systems Constitutional: Weakness Eyes: No Symptoms Reported ENT: No Symptoms Reported Respiratory: No Symptoms Reported Cardiovascular: Light Headedness Gastrointestinal: No Symptoms Reported Genitourinary: No Symptoms Reported Musculoskeletal: Back Pain, Neck Pain Skin: No Symptoms Reported Neurological: Weakness - Physical Exam Vital Signs: Vital Signs Temperature 98.4 F Temperature 99.0 F Pulse Rate [Left] 77 Pulse Rate [Left] 78 Respiratory Rate 20 Respiratory Rate 20 Respiratory Rate 20 Respiratory Rate 20 Respiratory Rate 20 Respiratory Rate 20 Respiratory Rate 20 Respiratory Rate 20 Blood Pressure [Right Arm] 153/67 Blood Pressure [Right Arm] 134/63 O2 Sat by Pulse Oximetry 96 O2 Sat by Pulse Oximetry 95 Oriented: Normal Eyes: Normal Ear: Normal Nose: Normal Throat: Normal Respiratory: Diminished Throughout Cardiovascular: Normal : Normal Auscultation: Bowel Sounds: Normal Palpation: Normal Tenderness: Normal Skin: Normal Musculoskeletal: Back:Lumbar, Tender Psychiatric: Normal Mood Description: Calm Affect: Normal Speech Pattern: Clear - Assessment/Plan (1) Physical deconditioning Status: Acute Plan: ADMIT, PT/OT, NORMAL SALINE AT 75 ML/HR, OTBS ACHS, HUMULIN R SLIDING SCA LE, TORADOL 30MG IV Q8H. HER HOME MEDS OF ASPIRIN, LIORESAL, LOTENSIN, VALIUM, LEXAPRO, AMARYL, LANTUS, SYNTHROID, AND ROSUVASTATIN WERE RESUMED. (2) Dyslipidemia associated with type 2 diabetes mellitus Status: None (3) Hyperglycemia Status: Acute (4) Arthritis Status: Acute (5) Dyslipidemia Status: Chronic (6) Hypothyroidism Qualifiers: Hypothyroidism type: acquired Qualified Code(s): E03.9 - Hypothyroidism, unspecified Status: Chronic - Allergies Allergies/Adverse Reactions: Allergies Allergy/AdvReac Type Severity Reaction Status Date / Time carisoprodol [Soma] Allergy Unknown Dizziness; Verified 05/21/23 14:34 Itching morphine [MS Contin] Allergy Unknown Verified 05/21/23 14:34 trazodone [Desyrel] Allergy Unknown Verified 05/21/23 14:34 - Medications Home Medications: Home Medications Medication Instructions Recorded Confirmed aspirin 81 mg chewable tablet 81 mg PO QDAY 05/21/23 05/21/23 benazepril 10 mg tablet 10 mg PO QDAY 05/21/23 05/21/23 diazepam 5 mg tablet 5 mg PO BID PRN 05/21/23 05/21/23 escitalopram oxalate 20 mg tablet 20 mg PO QDAY 05/21/23 05/21/23 glimepiride 4 mg tablet 4 mg PO QDAY 05/21/23 05/21/23 levothyroxine 112 mcg tablet 112 mcg PO QDAY 05/21/23 05/21/23 rosuvastatin 20 mg tablet 20 mg PO QPM 05/21/23 05/21/23 Previous Rx's Medication Instructions Recorded torsemide 10 mg tablet 10 mg PO QAM PRN edema #60 tabs 12/07/22 insulin glargine 100 unit/mL 70 unit (0.7 mL) subcut QPM for 02/04/23 subcutaneous solution (Lantus diabetes mellitus #40 mL U-100 Insulin) baclofen 20 mg tablet 20 mg PO QID for muscle spasm 30 02/26/23 days #120 tabs hydrocodone 10 mg-acetaminophen 1 tab PO TID PRN pain 30 days #90 04/15/23 325 mg tablet tabs
[2023-05-22] MEDS: CRESTOR TAB 10 MG PO SCH (20:37)
[2023-05-22] MEDS: SNACK - Diabetic Appropriate PO SCH (20:58)
[2023-05-22] MEDS: LANTUS SC SCH (21:02)
[2023-05-23] MEDS: NS 1,000 ML IV 1,000 ML IV SCH ×4 (00:13→23:05)
[2023-05-23] MEDS: NORCO 10/325 TAB PO PRN ×2 (00:20→08:14)
[2023-05-23 05:02] LABS: BASOPHILS # (AUTO) 0.1 X10^3/uL (0.0-0.1); BASOPHILS % (AUTO) 0.7 % (0.2-1.0); EOSINOPHILS # (AUTO) 0.4 x10^3/uL (0.0-0.2); EOSINOPHILS % (AUTO) 4.9 % (0.9-2.9); HEMATOCRIT 30.1 % (36.0-47.0); LYMPHOCYTES # (AUTO) 3.6 X10^3/uL (1.3-2.9); LYMPHOCYTES % (AUTO) 44.3 % (21.0-51.0); MEAN CORPUSCULAR HEMOGLOBIN 27.7 pg (27.0-34.0); MEAN CORPUSCULAR HGB CONC 33.2 g/dL (33.0-35.0); MEAN CORPUSCULAR VOLUME 83.4 fL (80.0-100.0); MEAN PLATELET VOLUME 7.5 fL (7.4-11.0); MONOCYTES # (AUTO) 0.6 x10^3/uL (0.3-0.8); MONOCYTES % (AUTO) 7.5 % (0.0-13.0); NEUTROPHILS # (AUTO) 3.4 x10^3/uL (2.2-4.8); NEUTROPHILS % (AUTO) 42.6 % (42.0-75.0); PLATELET COUNT 289 X10^3/uL (150.0-450.0); RED BLOOD COUNT 3.61 X10^6/uL (3.5-5.4); RED CELL DISTRIBUTION WIDTH 14.8 % (11.6-16.5); WHITE BLOOD COUNT 8.1 X10^3/uL (3.6-10.0)
[2023-05-23 05:17] LABS: ALANINE AMINOTRANSFERASE 22 Units/L (12-78); ALBUMIN 2.8 g/dL (3.4-5.0); ALKALINE PHOSPHATASE 85 Units/L (46-116); ASPARTATE AMINO TRANSFERASE 54 Units/L (15-37); BLOOD UREA NITROGEN 25 mg/dL (7-18); CALCIUM 7.9 mg/dL (8.5-10.1); CARBON DIOXIDE 29.1 mmol/L (21-32); CHLORIDE 101 mmol/L (98-107); COR CA(FOR HYPOALB) 8.9 mg/dL (8.5-10.1); CREATININE 1.61 mg/dL (0.55-1.02); GLUCOSE 110 mg/dL (65-99); POTASSIUM 4.2 mmol/L (3.5-5.1); SODIUM 135 mmol/L (136-145); TOTAL PROTEIN 5.9 g/dL (6.4-8.2); eGFR NON BLACK RACES 33 (>60)
[2023-05-23] MEDS ORDERED: CONSULT PHARMACY - POTASSIUM & MAGNESIUM XX SCH (06:00)
[2023-05-23] MEDS: TORADOL 30 MG VIAL IVP PRN (07:02)
[2023-05-23] MEDS ORDERED: LEXAPRO ONE (07:09)
--- NOTE | 2023-05-23 07:27 | RAD ---
HISTORYHip painSTUDYLeft hip four viewsCOMPARISONNoneFINDINGSThere is no evidence for fracture or dislocation, femoral head deformity or bone destruction. The submitted images are of limited technical quality with reduced detail.Slight joint narrowing with bone production at acetabular margin.IMPRESSIONOsteoarthrosis left hip; no acute findings.Electronically signed by: MELISSA GONZALEZ (May 23, 2023 07:26:47)
[2023-05-23] MEDS: VALIUM PO PRN (08:14)
[2023-05-23] MEDS: LIORESAL PO SCH ×4 (08:14→20:09)
[2023-05-23] MEDS: SYNTHROID 112 mcg TAB PO SCH (08:15)
[2023-05-23] MEDS: AMARYL TAB 4 MG PO SCH (08:15)
[2023-05-23] MEDS: LEXAPRO PO SCH (08:15)
[2023-05-23] MEDS: ASPIRIN 81 MG CHEWTAB PO SCH (08:15)
[2023-05-23] MEDS: LOTENSIN TAB 10 MG PO SCH (08:15)
[2023-05-23] MEDS: MAG-OX TAB PO SCH ×2 (08:16→10:15)
--- NOTE | 2023-05-23 10:32 | PCM.PROG ---
Progress Note - Progress Note for Day of Date of Exam: 05/23/23 - Subjective Subjective: IS CURRENTLY OBSERVATION STATUS FOR TREATMENT OF PHYSICAL DECONDITIONING, LOW BACK PAIN, LEFT HIP PAIN, AND NECK PAIN FOLLOWING A FALL AT HOME. TODAY, SHE IS ALERT AND ORIENTED, LYING IN BED ON MORNING ROUNDS. SHE HAS HAD AN UNEVENTFUL NIGHT. SHE CONTINUES TO COMPLAIN OF PAIN TO THE HEAD, NECK, LEFT HIP, AND LOW BACK, BUT REPORTS SLIGHT IMPROVEMENT IN SYMPTOMS SINCE YESTERDAY. ON EXAMINATION, HEART IS REGULAR IN RATE AND RHYTHM. BILATERAL LUNGS ARE NOTED WITH DIMINISHED LUNG SOUNDS THROUGHOUT. ABDOMEN IS ROUND, SOFT, AND NON-TENDER WITH NORMAL BOWEL SOUNDS NOTED IN ALL QUADRANTS. GOOD RANGE OF MOTION NOTED TO UPPER AND LOWER EXTREMTIES WITH NO EDEMA NOTED. HER VITALS THIS MORNING ARE: 97.6-68-18-95%-159/67. LABS WERE OBTAINED. WBC 8.1, RBC 3.61, HGB 10.0, HCT 30.1, PLT COUNT 289, SODIUM 135, POTASSIUM 4.2, CHLORIDE 101, BUN 25, CREATININE 1.61, GLUCOSE 110, CALCIUM 7.9, MAGNESIUM 1.9, AST 54, ALT 22, ALK PHOS 85, TOTAL PROTEIN 5.9, ALBUMIN 2.8. WE ORDERED A LEFT HIP XRAY YESTERDAY. IT REVEALED: Osteoarthrosis left hip; no acute findings. CHEST XRAY WAS ALSO OBTAINED YESTERDAY AND REVEALED: No active chest disease demonstrated. SHE IS CURRENTLY RECEIVING NORMAL SALINE AT 75 ML/HR, OTBS ACHS, HUMULIN R SLIDING SCALE, TORADOL 30MG IV Q8H. HER HOME MEDS OF ASPIRIN, LIORESAL, LOTENSIN, VALIUM, LEXAPRO, AMARYL, LANTUS, SYNTHROID, AND ROSUVASTATIN WERE RESUMED. WE WILL CONTINUE WITH CURRENT PLAN OF CARE TODAY. OTHERWISE, WE WILL FOLLOW UP WITH AM LABS AND CONTINUE TO MONITOR. TIME SPENT ON CLINICAL ASSESSMENT, REVIEWING LABS AND IMAGING, DECISION MAKING, AND DOCUMENTATION GREATER THAN 45 MINUTES. - Past Medical Family Social History Past Med/Fam/Surg Hx: No changes since H&P Allergies: Allergies carisoprodol [Soma] Allergy (Unknown, Verified 05/21/23 14:34) Dizziness; Itching Reason: Drug allergy morphine [MS Contin] Allergy (Unknown, Verified 05/21/23 14:34) Comments: GI tract burning when takes ms contin, intolerable Side effect trazodone [Desyrel] Allergy (Unknown, Verified 05/21/23 14:34) Comments: to sedating, makes her feel like a "ZOMBIE" - Review of Systems ROS: No change since H&P - Vital Signs and I&O's Vital Signs: Vital Signs Temperature 97.6 F Temperature 97.8 F Pulse Rate [Left] 68 Pulse Rate [Left] 74 Respiratory Rate 18 Respiratory Rate 18 Respiratory Rate 18 Respiratory Rate 18 Respiratory Rate 20 Respiratory Rate 20 Blood Pressure [Right Arm] 159/67 Blood Pressure [Right Arm] 170/77 O2 Sat by Pulse Oximetry 95 O2 Sat by Pulse Oximetry 96 Intake and Output: Intake & Output 05/20/23 05/21/23 05/22/23 05/23/23 11:59 11:59 11:59 11:59 Intake Total 520 / 520 4207 / 4207 Balance 520 / 520 4207 / 4207 - Physical Exam Oriented: Normal Eyes: Normal Ear: Normal Nose: Normal Throat: Normal Cardiovascular: Normal : Normal Auscultation: Bowel Sounds: Normal Palpation: Normal Tenderness: Normal Skin: Normal Musculoskeletal: Left, Hip, Back:Lumbar, Tender Psychiatric: Normal Mood Description: Calm Affect: Normal Speech Pattern: Clear, Appropriate - Laboratory and Diagnostics Result Diagrams: 05/23/23 04:35 05/23/23 04:35 Labs: Laboratory WBC 8.1 X10^3/uL (3.6-10.0) 05/23/23 04:35 RBC 3.61 X10^6/uL (3.5-5.4) 05/23/23 04:35 Hgb 10.0 g/dL (12.0-16.0) L 05/23/23 04:35 Hct 30.1 % (36.0-47.0) L 05/23/23 04:35 MCV 83.4 fL (80.0-100.0) 05/23/23 04:35 MCH 27.7 pg (27.0-34.0) 05/23/23 04:35 MCHC 33.2 g/dL (33.0-35.0) 05/23/23 04:35 RDW 14.8 % (11.6-16.5) 05/23/23 04:35 Plt Count 289 X10^3/uL (150.0-450.0) 05/23/23 04:35 MPV 7.5 fL (7.4-11.0) 05/23/23 04:35 Neut % (Auto) 42.6 % (42.0-75.0) 05/23/23 04:35 Lymph % (Auto) 44.3 % (21.0-51.0) 05/23/23 04:35 [place] % (Auto) 7.5 % (0.0-13.0) 05/23/23 04:35 Eos % (Auto) 4.9 % (0.9-2.9) H 05/23/23 04:35 Baso % (Auto) 0.7 % (0.2-1.0) 05/23/23 04:35 Neut # (Auto) 3.4 x10^3/uL (2.2-4.8) 05/23/23 04:35 Lymph # (Auto) 3.6 X10^3/uL (1.3-2.9) H 05/23/23 04:35 [place] # (Auto) 0.6 x10^3/uL (0.3-0.8) 05/23/23 04:35 Eos # (Auto) 0.4 x10^3/uL (0.0-0.2) H 05/23/23 04:35 Baso # (Auto) 0.1 X10^3/uL (0.0-0.1) 05/23/23 04:35 Absolute Nucleated RBC 0.0 /100WBC 05/23/23 04:35 Sodium 135 mmol/L (136-145) L 05/23/23 04:35 Corrected Sodium TNP 05/23/23 04:35 Potassium 4.2 mmol/L (3.5-5.1) 05/23/23 04:35 Chloride 101 mmol/L (98-107) 05/23/23 04:35 Carbon Dioxide 29.1 mmol/L (21-32) 05/23/23 04:35 BUN 25 mg/dL (7-18) H 05/23/23 04:35 Creatinine 1.61 mg/dL (0.55-1.02) H 05/23/23 04:35 Est GFR (MDRD) Af Amer 40 (>60) L 05/23/23 04:35 Est GFR (MDRD) Non-Af 33 (>60) L 05/23/23 04:35 Glucose 110 mg/dL (65-99) H 05/23/23 04:35 POC Glucose (mg/dL) 112 mg/dL (65-99) H 05/23/23 05:10 Calcium 7.9 mg/dL (8.5-10.1) L 05/23/23 04:35 Corrected Calcium 8.9 mg/dL (8.5-10.1) 05/23/23 04:35 Magnesium 1.9 mg/dL (2.0-2.9) L 05/23/23 04:35 Total Bilirubin 0.20 mg/dL (0.2-1.0) 05/23/23 04:35 AST 54 Units/L (15-37) H 05/23/23 04:35 ALT 22 Units/L (12-78) 05/23/23 04:35 Alkaline Phosphatase 85 Units/L (46-116) 05/23/23 04:35 Total Protein 5.9 g/dL (6.4-8.2) L 05/23/23 04:35 Albumin 2.8 g/dL (3.4-5.0) L 05/23/23 04:35 Globulin 3.1 g/dL (2.5-4.5) 05/23/23 04:35 Albumin/Globulin Ratio 0.9 Ratio (1.1-2.1) L 05/23/23 04:35 Specimen Type Clean catch urine 05/21/23 18:15 Urine Color Yellow (YELLOW) 05/21/23 18:15 Urine Appearance Clear (CLEAR) 05/21/23 18:15 Urine pH 6.0 (5.0 - 8.0) 05/21/23 18:15 Ur Specific [place] 1.020 (1.000-1.030) 05/21/23 18:15 Urine Protein 2+ (NEGATIVE) 05/21/23 18:15 Urine Glucose (UA) 1+ (NEGATIVE) 05/21/23 18:15 Urine Ketones Negative (NEGATIVE) 05/21/23 18:15 Urine Blood Negative (NEGATIVE) 05/21/23 18:15 Urine Nitrite Negative (NEGATIVE) 05/21/23 18:15 Urine Bilirubin Negative (NEGATIVE) 05/21/23 18:15 Urine Urobilinogen Normal (NORMAL) 05/21/23 18:15 Ur Leukocyte Esterase Negative (NEGATIVE) 05/21/23 18:15 Urine RBC None seen /HPF (0-3) 05/21/23 18:15 Urine WBC None seen /HPF (0-5) 05/21/23 18:15 Ur Squamous Epith Cells Rare /HPF (NEGATIVE) 05/21/23 18:15 Urine Bacteria Negative /HPF (NEGATIVE) 05/21/23 18:15 Ur Culture Indicated? No/not indicated 05/21/23 18:15 - Plan (1) Physical deconditioning Status: Acute Plan: PT/OT, NORMAL SALINE AT 75 ML/HR, OTBS ACHS, HUMULIN R SLIDING SCALE, TORADOL 30MG IV Q8H. HER HOME MEDS OF ASPIRIN, LIORESAL, LOTENSIN, VALIUM, LEXAPRO, AMARYL, LANTUS, SYNTHROID, AND ROSUVASTATIN WERE RESUMED. (2) Dyslipidemia associated with type 2 diabetes mellitus Status: None (3) Hyperglycemia Status: Acute (4) Arthritis Status: Acute (5) Dyslipidemia Status: Chronic (6) Hypothyroidism Status: Chronic Qualifiers: Hypothyroidism type: acquired Qualified Code(s): E03.9 - Hypothyroidism, unspecified
[2023-05-23] MEDS: NovoLIN R (or HumuLIN R) SUBCUT PRN ×2 (11:28→20:25)
[2023-05-23] MEDS ORDERED: ZOFRAN INJ 4 MG VIAL IVP PRN (18:46)
[2023-05-23] MEDS: CRESTOR TAB 10 MG PO SCH (20:09)
[2023-05-23] MEDS: SNACK - Diabetic Appropriate PO SCH (20:09)
[2023-05-23] MEDS: LANTUS SC SCH (20:26)
[2023-05-24] MEDS: NS 1,000 ML IV 1,000 ML IV SCH ×3 (05:10→22:07)
[2023-05-24] MEDS: NovoLIN R (or HumuLIN R) SUBCUT PRN (05:16)
[2023-05-24 05:27] LABS: BASOPHILS # (AUTO) 0.1 X10^3/uL (0.0-0.1); BASOPHILS % (AUTO) 0.9 % (0.2-1.0); EOSINOPHILS # (AUTO) 0.3 x10^3/uL (0.0-0.2); EOSINOPHILS % (AUTO) 4.5 % (0.9-2.9); HEMOGLOBIN 9.6 g/dL (12.0-16.0); LYMPHOCYTES # (AUTO) 2.3 X10^3/uL (1.3-2.9); LYMPHOCYTES % (AUTO) 33.4 % (21.0-51.0); MEAN CORPUSCULAR HEMOGLOBIN 27.5 pg (27.0-34.0); MEAN CORPUSCULAR HGB CONC 33.1 g/dL (33.0-35.0); MEAN CORPUSCULAR VOLUME 82.9 fL (80.0-100.0); MEAN PLATELET VOLUME 7.9 fL (7.4-11.0); MONOCYTES # (AUTO) 0.5 x10^3/uL (0.3-0.8); MONOCYTES % (AUTO) 7.8 % (0.0-13.0); NEUTROPHILS # (AUTO) 3.6 x10^3/uL (2.2-4.8); NEUTROPHILS % (AUTO) 53.4 % (42.0-75.0); PLATELET COUNT 263 X10^3/uL (150.0-450.0); RED CELL DISTRIBUTION WIDTH 14.7 % (11.6-16.5); WHITE BLOOD COUNT 6.7 X10^3/uL (3.6-10.0)
[2023-05-24 05:40] LABS: ALBUMIN 2.6 g/dL (3.4-5.0); CALCIUM 7.9 mg/dL (8.5-10.1); CARBON DIOXIDE 28.6 mmol/L (21-32); CREATININE 1.44 mg/dL (0.55-1.02); MAGNESIUM 1.9 mg/dL (2.0-2.9); POTASSIUM 4.5 mmol/L (3.5-5.1); TOTAL PROTEIN 5.6 g/dL (6.4-8.2)
[2023-05-24] MEDS ORDERED: CONSULT PHARMACY - POTASSIUM & MAGNESIUM XX SCH (06:00)
[2023-05-24] MEDS ORDERED: LEXAPRO ONE (08:16)
[2023-05-24] MEDS: LIORESAL PO SCH ×4 (09:02→21:39)
[2023-05-24] MEDS: LOTENSIN TAB 10 MG PO SCH (09:02)
[2023-05-24] MEDS: LEXAPRO PO SCH (09:02)
[2023-05-24] MEDS: ASPIRIN 81 MG CHEWTAB PO SCH (09:02)
[2023-05-24] MEDS: SYNTHROID 112 mcg TAB PO SCH (09:02)
[2023-05-24] MEDS: VALIUM PO PRN (09:03)
[2023-05-24] MEDS: MAG-OX TAB PO SCH ×3 (09:03→21:39)
[2023-05-24] MEDS: AMARYL TAB 4 MG PO SCH (09:03)
[2023-05-24] MEDS: LOVENOX INJ 40 MG SYR SC SCH (09:14)
[2023-05-24] MEDS ORDERED: MILK OF MAGNESIA PO PRN (20:04)
[2023-05-24] MEDS ORDERED: COLACE CAP 100 MG PO PRN (20:04)
[2023-05-24] MEDS: CRESTOR TAB 10 MG PO SCH (21:39)
[2023-05-24] MEDS: SNACK - Diabetic Appropriate PO SCH (21:40)
[2023-05-24] MEDS: LANTUS SC SCH (22:07)
[2023-05-25] MEDS: NORCO 10/325 TAB PO PRN ×2 (00:05→10:49)
[2023-05-25 06:04] LABS: BASOPHILS # (AUTO) 0.1 X10^3/uL (0.0-0.1); BASOPHILS % (AUTO) 1.1 % (0.2-1.0); EOSINOPHILS # (AUTO) 0.3 x10^3/uL (0.0-0.2); EOSINOPHILS % (AUTO) 4.1 % (0.9-2.9); HEMATOCRIT 28.6 % (36.0-47.0); HEMOGLOBIN 9.5 g/dL (12.0-16.0); LYMPHOCYTES # (AUTO) 3.2 X10^3/uL (1.3-2.9); LYMPHOCYTES % (AUTO) 39.3 % (21.0-51.0); MEAN CORPUSCULAR HEMOGLOBIN 27.6 pg (27.0-34.0); MEAN CORPUSCULAR HGB CONC 33.3 g/dL (33.0-35.0); MEAN PLATELET VOLUME 7.7 fL (7.4-11.0); MONOCYTES # (AUTO) 0.7 x10^3/uL (0.3-0.8); MONOCYTES % (AUTO) 8.3 % (0.0-13.0); NEUTROPHILS # (AUTO) 3.8 x10^3/uL (2.2-4.8); NEUTROPHILS % (AUTO) 47.2 % (42.0-75.0); PLATELET COUNT 231 X10^3/uL (150.0-450.0); RED BLOOD COUNT 3.45 X10^6/uL (3.5-5.4); RED CELL DISTRIBUTION WIDTH 14.8 % (11.6-16.5); WHITE BLOOD COUNT 8.1 X10^3/uL (3.6-10.0)
[2023-05-25 06:22] LABS: ALANINE AMINOTRANSFERASE 20 Units/L (12-78); ALBUMIN 2.7 g/dL (3.4-5.0); ALKALINE PHOSPHATASE 76 Units/L (46-116); ASPARTATE AMINO TRANSFERASE 30 Units/L (15-37); BLOOD UREA NITROGEN 17 mg/dL (7-18); CARBON DIOXIDE 31.4 mmol/L (21-32); CHLORIDE 103 mmol/L (98-107); CREATININE 1.28 mg/dL (0.55-1.02); GLUCOSE 83 mg/dL (65-99); POTASSIUM 3.9 mmol/L (3.5-5.1); SODIUM 138 mmol/L (136-145); TOTAL PROTEIN 5.6 g/dL (6.4-8.2); eGFR NON BLACK RACES 43 (>60)
[2023-05-25] MEDS: LIORESAL PO SCH ×2 (07:05→08:50)
--- NOTE | 2023-05-25 08:11 | PCM.PROG ---
Progress Note Progress Note for Day of Date of Exam: 05/24/23 Subjective Subjective: The patient is currently doing well this morning and has no new complaints. She has not seen physical therapy yet but is waiting for them to come today. We will see how she does with them and follow-up with them later on. Past Medical Family Social History Past Med/Fam/Surg Hx: No changes since H&P Allergies: Allergies carisoprodol [Soma] Allergy (Unknown, Verified 05/21/23 14:34) Dizziness; Itching Reason: Drug allergy morphine [MS Contin] Allergy (Unknown, Verified 05/21/23 14:34) Comments: GI tract burning when takes ms contin, intolerable Side effect trazodone [Desyrel] Allergy (Unknown, Verified 05/21/23 14:34) Comments: to sedating, makes her feel like a "ZOMBIE" Review of Systems ROS: No change since H&P Vital Signs and I&O's Vital Signs: Vital Signs Temperature 98.3 F Pulse Rate [Left] 60 Respiratory Rate 18 Respiratory Rate 20 Blood Pressure [Right Arm] 140/71 O2 Sat by Pulse Oximetry 97 Intake and Output: Intake & Output 05/22/23 05/23/23 05/24/23 05/25/23 11:59 11:59 11:59 11:59 Intake Total 520 / 520 4207 / 4207 3333 / 3333 2758 / 2758 Output Total 900 / 900 Balance 520 / 520 4207 / 4207 3333 / 3333 1858 / 1858 Physical Exam Oriented: Normal Eyes: Normal Ear: Normal Nose: Normal Throat: Normal Cardiovascular: Normal : Normal Auscultation: Bowel Sounds: Normal Tenderness: Normal Skin: Normal Musculoskeletal: Left, Hip, Back:Lumbar and Tender Psychiatric: Normal Mood Description: Calm Affect: Normal Speech Pattern: Clear and Appropriate Laboratory and Diagnostics 05/25/23 05:33 05/25/23 05:33 Labs: Laboratory WBC 8.1 X10^3/uL (3.6-10.0) 05/25/23 05:33 RBC 3.45 X10^6/uL (3.5-5.4) L 05/25/23 05:33 Hgb 9.5 g/dL (12.0-16.0) L 05/25/23 05:33 Hct 28.6 % (36.0-47.0) L 05/25/23 05:33 MCV 83.0 fL (80.0-100.0) 05/25/23 05:33 MCH 27.6 pg (27.0-34.0) 05/25/23 05:33 MCHC 33.3 g/dL (33.0-35.0) 05/25/23 05:33 RDW 14.8 % (11.6-16.5) 05/25/23 05:33 Plt Count 231 X10^3/uL (150.0-450.0) 05/25/23 05:33 MPV 7.7 fL (7.4-11.0) 05/25/23 05:33 Neut % (Auto) 47.2 % (42.0-75.0) 05/25/23 05:33 Lymph % (Auto) 39.3 % (21.0-51.0) 05/25/23 05:33 [place] % (Auto) 8.3 % (0.0-13.0) 05/25/23 05:33 Eos % (Auto) 4.1 % (0.9-2.9) H 05/25/23 05:33 Baso % (Auto) 1.1 % (0.2-1.0) H 05/25/23 05:33 Neut # (Auto) 3.8 x10^3/uL (2.2-4.8) 05/25/23 05:33 Lymph # (Auto) 3.2 X10^3/uL (1.3-2.9) H 05/25/23 05:33 [place] # (Auto) 0.7 x10^3/uL (0.3-0.8) 05/25/23 05:33 Eos # (Auto) 0.3 x10^3/uL (0.0-0.2) H 05/25/23 05:33 Baso # (Auto) 0.1 X10^3/uL (0.0-0.1) 05/25/23 05:33 Absolute Nucleated RBC 0.1 /100WBC 05/25/23 05:33 Sodium 138 mmol/L (136-145) 05/25/23 05:33 Corrected Sodium TNP 05/25/23 05:33 Potassium 3.9 mmol/L (3.5-5.1) 05/25/23 05:33 Chloride 103 mmol/L (98-107) 05/25/23 05:33 Carbon Dioxide 31.4 mmol/L (21-32) 05/25/23 05:33 BUN 17 mg/dL (7-18) 05/25/23 05:33 Creatinine 1.28 mg/dL (0.55-1.02) H 05/25/23 05:33 Est GFR (MDRD) Af Amer 52 (>60) L 05/25/23 05:33 Est GFR (MDRD) Non-Af 43 (>60) L 05/25/23 05:33 Glucose 83 mg/dL (65-99) 05/25/23 05:33 POC Glucose (mg/dL) 83 mg/dL (65-99) 05/25/23 05:09 Calcium 8.0 mg/dL (8.5-10.1) L 05/25/23 05:33 Corrected Calcium 9.0 mg/dL (8.5-10.1) 05/25/23 05:33 Magnesium 2.0 mg/dL (2.0-2.9) 05/25/23 05:33 Total Bilirubin 0.10 mg/dL (0.2-1.0) L 05/25/23 05:33 AST 30 Units/L (15-37) 05/25/23 05:33 ALT 20 Units/L (12-78) 05/25/23 05:33 Alkaline Phosphatase 76 Units/L (46-116) 05/25/23 05:33 Total Protein 5.6 g/dL (6.4-8.2) L 05/25/23 05:33 Albumin 2.7 g/dL (3.4-5.0) L 05/25/23 05:33 Globulin 2.9 g/dL (2.5-4.5) 05/25/23 05:33 Albumin/Globulin Ratio 0.9 Ratio (1.1-2.1) L 05/25/23 05:33 Specimen Type Clean catch urine 05/21/23 18:15 Urine Color Yellow (YELLOW) 05/21/23 18:15 Urine Appearance Clear (CLEAR) 05/21/23 18:15 Urine pH 6.0 (5.0 - 8.0) 05/21/23 18:15 Ur Specific [place] 1.020 (1.000-1.030) 05/21/23 18:15 Urine Protein 2+ (NEGATIVE) 05/21/23 18:15 Urine Glucose (UA) 1+ (NEGATIVE) 05/21/23 18:15 Urine Ketones Negative (NEGATIVE) 05/21/23 18:15 Urine Blood Negative (NEGATIVE) 05/21/23 18:15 Urine Nitrite Negative (NEGATIVE) 05/21/23 18:15 Urine Bilirubin Negative (NEGATIVE) 05/21/23 18:15 Urine Urobilinogen Normal (NORMAL) 05/21/23 18:15 Ur Leukocyte Esterase Negative (NEGATIVE) 05/21/23 18:15 Urine RBC None seen /HPF (0-3) 05/21/23 18:15 Urine WBC None seen /HPF (0-5) 05/21/23 18:15 Ur Squamous Epith Cells Rare /HPF (NEGATIVE) 05/21/23 18:15 Urine Bacteria Negative /HPF (NEGATIVE) 05/21/23 18:15 Ur Culture Indicated? No/not indicated 05/21/23 18:15 Plan (1) Physical deconditioning: Status: Acute Plan: PT/OT, NORMAL SALINE AT 75 ML/HR, OTBS ACHS, HUMULIN R SLIDING SCALE, TORADOL 30MG IV Q8H. HER HOME MEDS OF ASPIRIN, LIORESAL, LOTENSIN, VALIUM, LEXAPRO, AMARYL, LANTUS, SYNTHROID, AND ROSUVASTATIN WERE RESUMED. (2) Dyslipidemia associated with type 2 diabetes mellitus: Status: None (3) Hyperglycemia: Status: Acute (4) Arthritis: Status: Acute (5) Dyslipidemia: Status: Chronic (6) Hypothyroidism: Status: Chronic Qualifiers: Hypothyroidism type: acquired Qualified Code(s): E03.9 - Hypothyroidism, unspecified
[2023-05-25 08:40] VITALS: BP 168/65; PULSE 64; TEMP 98.2; O2SAT 98
[2023-05-25] MEDS: LOVENOX INJ 40 MG SYR SC SCH (08:40)
[2023-05-25] MEDS ORDERED: LEXAPRO ONE (08:42)
[2023-05-25] MEDS: SYNTHROID 112 mcg TAB PO SCH (08:48)
[2023-05-25] MEDS: LEXAPRO PO SCH (08:48)
[2023-05-25] MEDS: ASPIRIN 81 MG CHEWTAB PO SCH (08:48)
[2023-05-25] MEDS: AMARYL TAB 4 MG PO SCH (08:48)
[2023-05-25] MEDS: LOTENSIN TAB 10 MG PO SCH (08:48)
[2023-05-25] MEDS: MAG-OX TAB PO SCH (08:50)
[2023-05-25] MEDS: NS 1,000 ML IV 1,000 ML IV SCH (09:00)
[2023-05-25 10:49] VITALS: RESP 22
--- NOTE | 2023-05-26 10:02 | W.DIS.FURT ---
Summary of Discharge Discharge Summary of Date Date of Exam: 05/25/23 Admission Date Date of Admission: 05/21/23 Admission Diagnosis Patient Problems (Updated 05/22/23 @ 17:32 by Christofer Rodriguez) Physical deconditioning (Acute) R53.81 Hyperglycemia (Acute) R73.9 Chronic pain (Acute) G89.29 Arthritis (Acute) M19.90 Dyslipidemia (Chronic) E78.5 Hypothyroidism (Chronic) E03.9 Hospital Course: Patient is a 78-year-old female that was admitted for physical deconditioning, low back pain, left hip pain, and neck pain after having a fall at home. Her hospital course included: Receiving IV fluids normal saline, restarting home medications, and physical therapy. Labs: Wbc 8.1, Hgb 9.5, Plt 231, Na 138, K 3.9, Creatinine 1.28, Glucose 83. Patient responded well to treatments. Her strength has improved and she does have a good appetite. Patient will be discharged and will be staying with her daughter while receiving home physical therapy. Patient discharged in stable condition, instructed follow-up with PCP in 1 week. Vital Signs: Vital Signs (72 hours) 05/22/23 09:35 05/22/23 11:03 05/22/23 11:56 Temperature Pulse Rate [Left] Respiratory Rate 20 20 20 Blood Pressure [Right Arm] O2 Sat by Pulse Oximetry Oxygen Delivery Method 05/22/23 15:59 05/22/23 12:00 05/22/23 11:35 Temperature 99.0 F Pulse Rate [Left] 78 Respiratory Rate 20 20 20 Blood Pressure [Right Arm] 134/63 O2 Sat by Pulse Oximetry 95 Oxygen Delivery Method Room Air 05/22/23 12:26 05/22/23 16:00 05/22/23 19:22 Temperature 98.4 F Pulse Rate [Left] 77 Respiratory Rate 20 20 18 Blood Pressure [Right Arm] 153/67 O2 Sat by Pulse Oximetry 96 Oxygen Delivery Method Room Air 05/22/23 19:48 05/22/23 20:40 05/22/23 19:00 Temperature 98.5 F Pulse Rate [Left] 72 Respiratory Rate 20 20 Blood Pressure [Right Arm] 137/63 O2 Sat by Pulse Oximetry 94 L Oxygen Delivery Method Room Air Room Air 05/22/23 21:10 05/22/23 23:50 05/23/23 00:20 Temperature 98.4 F Pulse Rate [Left] 69 Respiratory Rate 18 20 17 Blood Pressure [Right Arm] 156/69 O2 Sat by Pulse Oximetry 95 Oxygen Delivery Method Room Air 05/23/23 01:20 05/23/23 04:00 05/23/23 07:02 Temperature 97.8 F Pulse Rate [Left] 74 Respiratory Rate 18 20 20 Blood Pressure [Right Arm] 170/77 O2 Sat by Pulse Oximetry 96 Oxygen Delivery Method Room Air 05/23/23 08:14 05/23/23 07:32 05/23/23 07:00 Temperature Pulse Rate [Left] Respiratory Rate 18 18 Blood Pressure [Right Arm] O2 Sat by Pulse Oximetry Oxygen Delivery Method Room Air 05/23/23 08:00 05/23/23 09:14 05/23/23 12:00 Temperature 97.6 F 97.4 F L Pulse Rate [Left] 68 66 Respiratory Rate 18 18 18 Blood Pressure [Right Arm] 159/67 157/68 O2 Sat by Pulse Oximetry 95 94 L Oxygen Delivery Method Room Air Room Air 05/23/23 16:00 05/23/23 19:00 05/23/23 20:00 Temperature 97.9 F 98.5 F Pulse Rate [Left] 68 70 Respiratory Rate 18 20 Blood Pressure [Right Arm] 142/65 150/65 O2 Sat by Pulse Oximetry 97 97 Oxygen Delivery Method Room Air Room Air Room Air 05/23/23 23:42 05/24/23 04:00 05/24/23 08:00 Temperature 98.6 F 97.9 F 97.7 F Pulse Rate [Left] 69 65 64 Respiratory Rate 20 20 20 Blood Pressure [Right Arm] 156/70 170/74 165/76 O2 Sat by Pulse Oximetry 98 97 99 Oxygen Delivery Method Room Air Room Air Room Air 05/24/23 07:00 05/24/23 12:00 05/24/23 16:00 Temperature 98.5 F 98.2 F Pulse Rate [Left] 67 64 Respiratory Rate 20 20 Blood Pressure [Right Arm] 151/79 163/75 O2 Sat by Pulse Oximetry 97 96 Oxygen Delivery Method Room Air Room Air Room Air 05/24/23 19:00 05/24/23 20:00 05/24/23 20:10 Temperature 97.9 F Pulse Rate [Left] 70 Respiratory Rate 20 Blood Pressure [Right Arm] 181/77 164/72 O2 Sat by Pulse Oximetry 97 Oxygen Delivery Method Room Air Room Air 05/25/23 00:00 05/25/23 00:05 05/25/23 01:05 Temperature 97.8 F Pulse Rate [Left] 66 Respiratory Rate 18 20 20 Blood Pressure [Right Arm] 155/79 O2 Sat by Pulse Oximetry 97 Oxygen Delivery Method Room Air 05/25/23 04:00 05/25/23 08:00 Temperature 98.3 F 98.2 F Pulse Rate [Left] 60 64 Respiratory Rate 18 18 Blood Pressure [Right Arm] 140/71 168/65 O2 Sat by Pulse Oximetry 97 98 Oxygen Delivery Method Room Air Room Air Labs: Laboratory Last Values WBC 8.1 X10^3/uL (3.6-10.0) 05/25/23 05:33 RBC 3.45 X10^6/uL (3.5-5.4) L 05/25/23 05:33 Hgb 9.5 g/dL (12.0-16.0) L 05/25/23 05:33 Hct 28.6 % (36.0-47.0) L 05/25/23 05:33 MCV 83.0 fL (80.0-100.0) 05/25/23 05:33 MCH 27.6 pg (27.0-34.0) 05/25/23 05:33 MCHC 33.3 g/dL (33.0-35.0) 05/25/23 05:33 RDW 14.8 % (11.6-16.5) 05/25/23 05:33 Plt Count 231 X10^3/uL (150.0-450.0) 05/25/23 05:33 MPV 7.7 fL (7.4-11.0) 05/25/23 05:33 Neut % (Auto) 47.2 % (42.0-75.0) 05/25/23 05:33 Lymph % (Auto) 39.3 % (21.0-51.0) 05/25/23 05:33 [place] % (Auto) 8.3 % (0.0-13.0) 05/25/23 05:33 Eos % (Auto) 4.1 % (0.9-2.9) H 05/25/23 05:33 Baso % (Auto) 1.1 % (0.2-1.0) H 05/25/23 05:33 Neut # (Auto) 3.8 x10^3/uL (2.2-4.8) 05/25/23 05:33 Lymph # (Auto) 3.2 X10^3/uL (1.3-2.9) H 05/25/23 05:33 [place] # (Auto) 0.7 x10^3/uL (0.3-0.8) 05/25/23 05:33 Eos # (Auto) 0.3 x10^3/uL (0.0-0.2) H 05/25/23 05:33 Baso # (Auto) 0.1 X10^3/uL (0.0-0.1) 05/25/23 05:33 Absolute Nucleated RBC 0.1 /100WBC 05/25/23 05:33 Sodium 138 mmol/L (136-145) 05/25/23 05:33 Corrected Sodium TNP 05/25/23 05:33 Potassium 3.9 mmol/L (3.5-5.1) 05/25/23 05:33 Chloride 103 mmol/L (98-107) 05/25/23 05:33 Carbon Dioxide 31.4 mmol/L (21-32) 05/25/23 05:33 BUN 17 mg/dL (7-18) 05/25/23 05:33 Creatinine 1.28 mg/dL (0.55-1.02) H 05/25/23 05:33 Est GFR (MDRD) Af Amer 52 (>60) L 05/25/23 05:33 Est GFR (MDRD) Non-Af 43 (>60) L 05/25/23 05:33 Glucose 83 mg/dL (65-99) 05/25/23 05:33 POC Glucose (mg/dL) 83 mg/dL (65-99) 05/25/23 05:09 Calcium 8.0 mg/dL (8.5-10.1) L 05/25/23 05:33 Corrected Calcium 9.0 mg/dL (8.5-10.1) 05/25/23 05:33 Magnesium 2.0 mg/dL (2.0-2.9) 05/25/23 05:33 Total Bilirubin 0.10 mg/dL (0.2-1.0) L 05/25/23 05:33 AST 30 Units/L (15-37) 05/25/23 05:33 ALT 20 Units/L (12-78) 05/25/23 05:33 Alkaline Phosphatase 76 Units/L (46-116) 05/25/23 05:33 Total Protein 5.6 g/dL (6.4-8.2) L 05/25/23 05:33 Albumin 2.7 g/dL (3.4-5.0) L 05/25/23 05:33 Globulin 2.9 g/dL (2.5-4.5) 05/25/23 05:33 Albumin/Globulin Ratio 0.9 Ratio (1.1-2.1) L 05/25/23 05:33 Specimen Type Clean catch urine 05/21/23 18:15 Urine Color Yellow (YELLOW) 05/21/23 18:15 Urine Appearance Clear (CLEAR) 05/21/23 18:15 Urine pH 6.0 (5.0 - 8.0) 05/21/23 18:15 Ur Specific [place] 1.020 (1.000-1.030) 05/21/23 18:15 Urine Protein 2+ (NEGATIVE) 05/21/23 18:15 Urine Glucose (UA) 1+ (NEGATIVE) 05/21/23 18:15 Urine Ketones Negative (NEGATIVE) 05/21/23 18:15 Urine Blood Negative (NEGATIVE) 05/21/23 18:15 Urine Nitrite Negative (NEGATIVE) 05/21/23 18:15 Urine Bilirubin Negative (NEGATIVE) 05/21/23 18:15 Urine Urobilinogen Normal (NORMAL) 05/21/23 18:15 Ur Leukocyte Esterase Negative (NEGATIVE) 05/21/23 18:15 Urine RBC None seen /HPF (0-3) 05/21/23 18:15 Urine WBC None seen /HPF (0-5) 05/21/23 18:15 Ur Squamous Epith Cells Rare /HPF (NEGATIVE) 05/21/23 18:15 Urine Bacteria Negative /HPF (NEGATIVE) 05/21/23 18:15 Ur Culture Indicated? No/not indicated 05/21/23 18:15 Reason For Visit: DECONDITIONING, INTRACTABLE PAIN, HYPERGLYCEMIA Discharge Date Discharge Date: 05/25/23 Discharge Diagnosis All Active Problems (Updated 05/22/23 @ 17:32 by Christofer Rodriguez) Physical deconditioning (Acute) Hyperglycemia (Acute) Chronic pain (Acute) Arthritis (Acute) Dyslipidemia (Chronic) Hypothyroidism (Chronic) Neck and shoulder pain (Acute) Spasm of back muscles (Acute) Post-menopausal osteoporosis (Acute) Encounter for screening mammogram for malignant neoplasm of breast (Chronic) Macular erythematous rash (Acute) Upper respiratory infection (Acute) Mid back pain on right side (Acute) Plan of Treatment: Continue with present treatment and follow up plan. Pt is to keep follow up appointment as instructed and take medications as ordered. Discharge Medications Discharge Medications: carisoprodol [Soma] Allergy (Unknown, Verified 05/21/23 14:34) Dizziness; Itching morphine [MS Contin] Allergy (Unknown, Verified 05/21/23 14:34) trazodone [Desyrel] Allergy (Unknown, Verified 05/21/23 14:34) CONTINUE taking the following medications aspirin 81 mg chewable tablet 81 mg PO QDAY 05/21/23 [History] benazepril 10 mg tablet 10 mg PO QDAY 05/21/23 [History] diazepam 5 mg tablet 5 mg PO BID PRN 05/21/23 [History] escitalopram oxalate 20 mg tablet 20 mg PO QDAY 05/21/23 [History] glimepiride 4 mg tablet 4 mg PO QDAY 05/21/23 [History] levothyroxine 112 mcg tablet 112 mcg PO QDAY 05/21/23 [History] rosuvastatin 20 mg tablet 20 mg PO QPM 05/21/23 [History] Discharge Disposition Assessment: No acute distress noted at discharge. Discharge Plan Discharge Plan Hospital Course: Patient is a 78-year-old female that was admitted for physical deconditioning, low back pain, left hip pain, and neck pain after having a fall at home. Her ho spital course included: Receiving IV fluids normal saline, restarting home medications, and physical therapy. Labs: Wbc 8.1, Hgb 9.5, Plt 231, Na 138, K 3.9, Creatinine 1.28, Glucose 83. Patient responded well to treatments. Her strength has improved and she does have a good appetite. Patient will be discharged and will be staying with her daughter while receiving home physical therapy. Patient discharged in stable condition, instructed follow-up with PCP in 1 week. Patient Disposition: HOME HEALTH SERVICE Condition: Stable Health Concerns: Post Hospitalization: new medications and changes needed to prevent readmission or further decline. Pt educated and given instructions on all concerns. Care Plan Goals: Problem: Pain/Alteration in Comfort Goal: Improve/ Resolve Pain; Achieve Pain Tolerance Instructions: Take pain medications as prescribed. Contact your primary care provider if your pain is unrelieved or worsens. Follow up with primary care provider as directed. Plan of Treatment: Continue with present treatment and follow up plan. Pt is to keep follow up appointment as instructed and take medications as ordered. Assessment: No acute distress noted at discharge. Prescriptions: No Action torsemide 10 mg tablet 10 mg PO QAM MDD 1/2-1 PRN (Reason: edema) Qty: 60 0RF Rx Instructions: 1/2-1 tab daily insulin glargine [Lantus U-100 Insulin] 100 unit/mL solution 70 unit subcut QPM Qty: 40 2RF hydrocodone-acetaminophen 10-325 mg tablet 1 tab PO TID MDD 3 PRN (Reason: pain) 30 Days Qty: 90 0RF baclofen 20 mg tablet 20 mg PO QID 30 Days Qty: 120 0RF glimepiride 4 mg tablet 4 mg PO QDAY benazepril 10 mg tablet 10 mg PO QDAY diazepam 5 mg tablet 5 mg PO BID PRN levothyroxine 112 mcg tablet 112 mcg PO QDAY escitalopram oxalate 20 mg tablet 20 mg PO QDAY rosuvastatin 20 mg tablet 20 mg PO QPM aspirin 81 mg Tablet,Chewable 81 mg PO QDAY Follow ups/Referrals Follow ups/Referrals: BILLIE GARCIA [STAFF PHYSICIAN] - ALONSO RYAN [Nurse Practitioner] - 06/01/23 2:00 pm Instructions Instructions: Health Maintenance After Age 65, Weakness, [id number], Understanding Your Risk for Falls, Chronic Pain, Adult, How to Use a Walker, Chronic Kidney Disease, Adult, Blood Glucose Monitoring, Adult Stand Alone Forms: [facility], Post Hospital Follow Up Care
== END 2023-05-25 12:00 | disposition home health service (06) ==
LOC: ER 13:35 → MED/SURG 13:35
PROVIDERS: ADMIT Internal Medicine; ATTEND Family Medicine
DX: M54.59 Other low back pain; M19.90 Unspecified osteoarthritis, unspecified site; R26.89 Other abnormalities of gait and mobility; M54.2 Cervicalgia; R51.9 Headache, unspecified; R53.81 Other malaise; E11.65 Type 2 diabetes mellitus with hyperglycemia; R06.02 Shortness of breath; M25.552 Pain in left hip; S00.03XA Contusion of scalp, initial encounter; E78.5 Hyperlipidemia, unspecified; R94.4 Abnormal results of kidney function studies; W18.39XA Other fall on same level, initial encounter; E03.8 Other specified hypothyroidism; F41.8 Other specified anxiety disorders

== ENCOUNTER 2025-04-05 15:27 | Observation (INO) ==
--- NOTE | 2025-04-05 15:38 | DR.DIZZY ---
HPI Time seen Time Seen by Provider: 04/05/25 15:38 HPI Comment HPI Comment: History as below. COVID-19 Coronavirus risk:travel/contact w/high risk person: No Has patient experienced Coronavirus symptoms: No Nurses Notes Reviewed Nurses Notes Review: Yes PMH PMH Past Medical History: Anxiety, Arthritis, Diabetes, Dyslipidemia, Migraines and Hypothyroidism Past Surgical History: Yes Surgical History: Cholecystectomy and Ortho Surgery Family History Family Medical History: Cancer Social History Do you use any recreational Drugs:: No ROS Review of Systems Constitutional: See HPI, Weakness and Fatigue; negative Fever Eyes: No Symptoms Reported and See HPI ENTM: No Symptoms Reported and See HPI; negative Nose Discharge or Nose Congestion Respiratoy: See HPI and Short of Breath (ON EXERTION.) Cardiovascular: No Symptoms Reported and See HPI; negative Chest Pain or Syncope Gastrointestinal/Abdominal: No Symptoms Reported and See HPI; negative Abdominal Pain, Diarrhea or Vomiting Genitourinary: No Symptoms Reported and See HPI; negative Dysuria Neurological: See HPI, Weakness and Dizziness; negative Headache Musculoskeletal: No Symptoms Reported, See HPI and Back Pain (Chronic.) Integumentary: No Symptoms Reported and See HPI Hematologic/Lymphatic: No Symptoms Reported and See HPI Endocrine: No Symptoms Reported and See HPI Psychiatric: No Symptoms Reported and See HPI All Other Systems: Reviewed and Negative PE Vital Signs Vitals: Vital Signs Temperature 98.2 F Pulse Rate [Standing] 88 Pulse Rate [Sitting] 79 Pulse Rate [Lying] 79 Pulse Rate 73 Pulse Rate 77 Pulse Rate 83 Respiratory Rate 16 Respiratory Rate 13 Respiratory Rate 19 Blood Pressure [Standing] 104/55 Blood Pressure [Sitting] 137/58 Blood Pressure [Lying] 132/63 Blood Pressure 168/71 Blood Pressure 143/65 Blood Pressure 127/58 Blood Pressure 86/51 O2 Sat by Pulse Oximetry 97 O2 Sat by Pulse Oximetry 100 O2 Sat by Pulse Oximetry 96 General Limitations: No Limitations General Appearance: Alert and In No Apparent Distress Head Head Exam: Normal Inspection Eyes Eye exam: Normal Appearance; negative Scleral Icterus or Conjunctival Injection Pupils: Regular, Round: Bilateral and Reactive: Bilateral Sclera/Conjunctival: Normal Inspection: Bilateral ENT ENT Exam: Normal Exam, Normal Oropharynx, Normal External Ear Exam, Mucous Membranes Moist and TM's Normal Bilaterally Neck Neck Exam: Normal Inspection and Trachea Midline; negative Tenderness Chest Chest Inspection: Normal Inspection and Symmetric Chest Wall Rise; negative Tenderness Respiratory Respiratory Exam: Normal Lung Sounds Bilat; negative Accessory Muscle Use, Chest Wall Tenderness or Respiratory Distress Cardiovascular Cardiovascular Exam: Regular Rate, Normal Rhythm and Normal Heart Sounds; negative Systolic Murmur or Diastolic Murmur Abdominal Exam Abdominal Exam: Normal Inspection, Normal Bowel Sounds and Soft; negative Tenderness Rectal Rectal Exam: Deferred Extremeties Extremities Exam: Normal Inspection and Normal Capillary Refill Back Back Exam: Normal Inspection; negative (R) CVA Tenderness or (L) CVA Tenderness Neurologic Neurological Exam: Alert and Oriented X3; negative Motor Sensory Deficit Psychiatric Psychiatric Exam: Normal Affect and Normal Mood Skin Skin Exam: Warm and Intact MDM Differential Diagnosis Differential Diagnosis: Anemia, CVA, Dehydration, Dysrhythmia, Electrolyte disorder, Hypoglycemia, Labyrinthitis and Myocardial infarction ROR Labs Reviewed 04/05/25 16:00 04/05/25 16:00 Laboratory: WBC 7.3 X10^3/uL (3.6-10.0) 04/05/25 16:00 RBC 3.71 X10^6/uL (3.5-5.4) 04/05/25 16:00 Hgb 9.8 g/dL (12.0-16.0) L 04/05/25 16:00 Hct 30.2 % (36.0-47.0) L 04/05/25 16:00 MCV 81.6 fL (80.0-100.0) 04/05/25 16:00 MCH 26.4 pg (27.0-34.0) L 04/05/25 16:00 MCHC 32.3 g/dL (33.0-35.0) L 04/05/25 16:00 RDW 14.7 % (11.6-16.5) 04/05/25 16:00 Plt Count 261 X10^3/uL (150.0-450.0) 04/05/25 16:00 MPV 7.3 fL (7.4-11.0) L 04/05/25 16:00 Neut % (Auto) 48.8 % (42.0-75.0) 04/05/25 16:00 Lymph % (Auto) 38.0 % (21.0-51.0) 04/05/25 16:00 [place] % (Auto) 10.1 % (0.0-13.0) 04/05/25 16:00 Eos % (Auto) 2.4 % (0.9-2.9) 04/05/25 16:00 Baso % (Auto) 0.7 % (0.2-1.0) 04/05/25 16:00 Neut # (Auto) 3.6 x10^3/uL (2.2-4.8) 04/05/25 16:00 Lymph # (Auto) 2.8 X10^3/uL (1.3-2.9) 04/05/25 16:00 [place] # (Auto) 0.7 x10^3/uL (0.3-0.8) 04/05/25 16:00 Eos # (Auto) 0.2 x10^3/uL (0.0-0.2) 04/05/25 16:00 Baso # (Auto) 0.1 X10^3/uL (0.0-0.1) 04/05/25 16:00 Absolute Nucleated RBC 0.1 /100WBC 04/05/25 16:00 Sodium 140 mmol/L (136-145) 04/05/25 16:00 Corrected Sodium 141 mmol/L (136-145) 04/05/25 16:00 Potassium 4.3 mmol/L (3.5-5.1) 04/05/25 16:00 Chloride 104 mmol/L (98-107) 04/05/25 16:00 Carbon Dioxide 28.2 mmol/L (21-32) 04/05/25 16:00 BUN 32 mg/dL (7-18) H 04/05/25 16:00 Creatinine 1.86 mg/dL (0.55-1.02) H 04/05/25 16:00 Est GFR (MDRD) Af Amer 34 (>60) L 04/05/25 16:00 Est GFR (MDRD) Non-Af 28 (>60) L 04/05/25 16:00 Glucose 135 mg/dL (65-99) H 04/05/25 16:00 Calcium 9.4 mg/dL (8.5-10.1) 04/05/25 16:00 Corrected Calcium TNP 04/05/25 16:00 Magnesium 2.0 mg/dL (2.0-2.9) 04/05/25 15:55 Total Bilirubin 0.20 mg/dL (0.2-1.0) 04/05/25 16:00 AST 32 Units/L (15-37) 04/05/25 16:00 ALT 24 Units/L (12-78) 04/05/25 16:00 Alkaline Phosphatase 76 Units/L (46-116) 04/05/25 16:00 Creatine Kinase 398 Units/L (26-192) H 04/05/25 16:00 Troponin I High Sens 26.0 ng/L (4.0-60.0) 04/05/25 16:00 B-Natriuretic Peptide 70.3 pg/mL (0-79) 04/05/25 16:00 Total Protein 8.3 g/dL (6.4-8.2) H 04/05/25 16:00 Albumin 3.8 g/dL (3.4-5.0) 04/05/25 16:00 Globulin 4.5 g/dL (2.5-4.5) 04/05/25 16:00 Albumin/Globulin Ratio 0.8 Ratio (1.1-2.1) L 04/05/25 16:00 Specimen Type Catherized urine 04/05/25 16:36 Urine Color Yellow (YELLOW) 04/05/25 16:36 Urine Appearance Clear (CLEAR) 04/05/25 16:36 Urine pH 6.0 (5.0 - 8.0) 04/05/25 16:36 Ur Specific [place] 1.010 (1.000-1.030) 04/05/25 16:36 Urine Protein 1+ (NEGATIVE) 04/05/25 16:36 Urine Glucose (UA) Negative (NEGATIVE) 04/05/25 16:36 Urine Ketones Negative (NEGATIVE) 04/05/25 16:36 Urine Blood Negative (NEGATIVE) 04/05/25 16:36 Urine Nitrite Negative (NEGATIVE) 04/05/25 16:36 Urine Bilirubin Negative (NEGATIVE) 04/05/25 16:36 Urine Urobilinogen Normal (NORMAL) 04/05/25 16:36 Ur Leukocyte Esterase 2+ (NEGATIVE) 04/05/25 16:36 Urine RBC 0-2 /HPF (0-3) 04/05/25 16:36 Urine WBC 3-5 /HPF (0-5) 04/05/25 16:36 Ur Squamous Epith Cells Moderate /HPF (NEGATIVE) 04/05/25 16:36 Ur Renal Epithelial Cell Few /HPF (NEGATIVE) 04/05/25 16:36 Urine Bacteria Trace /HPF (NEGATIVE) 04/05/25 16:36 Ur Culture Indicated? No/not indicated 04/05/25 16:36 Opioid Opioid Risk Tool Age (Chad box if 16-45): No History of Preadolescent Sexual Abuse: No Total: 0 Total Score Risk Category: Low Risk Copyright: Turner [employer] predicting aberrant behaviors Discharge Plan Diagnosis Discharge Problem: Orthostatic hypotension, Dehydration, Dizziness, Weakness UTI (urinary tract infection) Qualifiers: Urinary tract infection type: site unspecified Hematuria presence: with hematuria Qualified Code(s): N39.0 - Urinary tract infection, site not specified Discharge Plan Patient Disposition: 09 ADMITTED INPATIENT Condition: Stable Orders to Discharge Patient Discharge Orders: Transfer (Routine); Ordered 04/05/25 Ordered By: MIKAYLA JARQUIN
[2025-04-05] MEDS: NS 1,000 ML IV 1,000 ML IV ONE (16:04)
[2025-04-05 16:11] LABS: BASOPHILS # (AUTO) 0.1 X10^3/uL (0.0-0.1); BASOPHILS % (AUTO) 0.7 % (0.2-1.0); EOSINOPHILS # (AUTO) 0.2 x10^3/uL (0.0-0.2); EOSINOPHILS % (AUTO) 2.4 % (0.9-2.9); HEMATOCRIT 30.2 % (36.0-47.0); HEMOGLOBIN 9.8 g/dL (12.0-16.0); LYMPHOCYTES # (AUTO) 2.8 X10^3/uL (1.3-2.9); MEAN CORPUSCULAR HEMOGLOBIN 26.4 pg (27.0-34.0); MEAN CORPUSCULAR HGB CONC 32.3 g/dL (33.0-35.0); MEAN CORPUSCULAR VOLUME 81.6 fL (80.0-100.0); MEAN PLATELET VOLUME 7.3 fL (7.4-11.0); MONOCYTES # (AUTO) 0.7 x10^3/uL (0.3-0.8); MONOCYTES % (AUTO) 10.1 % (0.0-13.0); NEUTROPHILS # (AUTO) 3.6 x10^3/uL (2.2-4.8); NEUTROPHILS % (AUTO) 48.8 % (42.0-75.0); PLATELET COUNT 261 X10^3/uL (150.0-450.0); RED BLOOD COUNT 3.71 X10^6/uL (3.5-5.4); RED CELL DISTRIBUTION WIDTH 14.7 % (11.6-16.5); WHITE BLOOD COUNT 7.3 X10^3/uL (3.6-10.0)
--- NOTE | 2025-04-05 16:14 | EKG ---
Test Reason : HYPOTENSION Blood Pressure : */* mmHG Vent. Rate : 77 BPM Atrial Rate : 77 BPM P-R Int : 154 ms QRS Dur : 122 ms QT Int : 402 ms P-R-T Axes : 51 -40 63 degrees QTc Int : 454 ms Normal sinus rhythm Left axis deviation Left ventricular hypertrophy with QRS widening ( R in aVL , Elan product ) Abnormal ECG No previous ECGs available Confirmed by Heraclio Anthony MD ([id number]) on 04/05/2025 6:49:23 PM Referred By: Confirmed By: Heraclio Anthony MD
[2025-04-05 16:24] LABS: ALANINE AMINOTRANSFERASE 24 Units/L (12-78); ALBUMIN 3.8 g/dL (3.4-5.0); ALKALINE PHOSPHATASE 76 Units/L (46-116); ASPARTATE AMINO TRANSFERASE 32 Units/L (15-37); BLOOD UREA NITROGEN 32 mg/dL (7-18); CALCIUM 9.4 mg/dL (8.5-10.1); CARBON DIOXIDE 28.2 mmol/L (21-32); CHLORIDE 104 mmol/L (98-107); COR NA(FOR HYPERGLY) 141 mmol/L (136-145); CREATINE KINASE 398 Units/L (26-192); CREATININE 1.86 mg/dL (0.55-1.02); GLUCOSE 135 mg/dL (65-99); POTASSIUM 4.3 mmol/L (3.5-5.1); SODIUM 140 mmol/L (136-145); TOTAL PROTEIN 8.3 g/dL (6.4-8.2); eGFR NON BLACK RACES 28 (>60)
--- NOTE | 2025-04-05 16:25 | RAD ---
EXAM: CHEST, 1 VIEW HISTORY: DYSPNEA ON EXERTION; COMPARISON: 05/22/2023 TECHNIQUE: AP portable FINDINGS: Stable cardiac silhouette. No focal consolidation, pleural effusion, or visible pneumothorax. IMPRESSION: No acute cardiopulmonary findings. THIS IS AN ELECTRONICALLY VERIFIED FINAL REPORT 04/05/2025 4:22 PM - Electronically signed by Eliezer Jason MD
[2025-04-05 16:54] LABS: BILIRUBIN,URINE NEGATIVE (NEGATIVE); BLOOD/HEMOGLOBIN,URINE NEGATIVE (NEGATIVE); GLUCOSE, URINE NEGATIVE (NEGATIVE); KETONES,URINE NEGATIVE (NEGATIVE); LEUKOCYTE ESTERASE ,URINE 2+ (NEGATIVE); NITRITES,URINE NEGATIVE (NEGATIVE); PROTEIN,URINE 1+ (NEGATIVE); UROBILINOGEN,URINE NORMAL (NORMAL)
[2025-04-05 16:55] LABS: APPEARANCE,URINE CLEAR (CLEAR); COLOR,URINE YELLOW (YELLOW)
--- NOTE | 2025-04-05 16:59 | CT ---
EXAM: BRAIN W/O CON HISTORY: DIZZINESS COMPARISON: None. TECHNIQUE: Axial non-contrast images of the head were obtained with coronal and sagittal reformats provided. Radiation dose: 870.14 mGy-cm total DLP FINDINGS: No abnormal areas of acute attenuation in the brain parenchyma. Ocampo-white differentiation remains intact. No intracranial, extra-axial, fluid collection. No hemorrhage. Periventricular chronic microvascular disease. No mass, mass effect or midline shift. Age related brain parenchymal global atrophy. No ventriculomegaly. No acute fracture. Sinuses are well aerated. Fluid in the inferior aspect of the right mastoid air cells without osseous destruction. Left mastoid air cells are well-aerated. Globes and intra-orbital contents are unremarkable. IMPRESSION: No acute intracranial abnormality identified. THIS IS AN ELECTRONICALLY VERIFIED FINAL REPORT 04/05/2025 4:56 PM - Electronically signed by Dez Patel MD
[2025-04-05 17:01] LABS: BACTERIA,URINE TRACE /HPF (NEGATIVE); RBC,URINE 0-2 /HPF (0-3); RENAL EPITHELIAL CELLS,URINE FEW /HPF (NEGATIVE); SQUAMOUS EPITHELIAL CELL,UR MODERATE /HPF (NEGATIVE)
[2025-04-05] MEDS: ROCEPHIN VIAL 1 GRAM 1 G in NS 100 ML IV 100 ML IV ONE (17:12)
[2025-04-05] MEDS: ROCEPHIN VIAL 1 GRAM ONE (18:02)
[2025-04-05] MEDS: NS 1,000 ML IV 1,000 ML IV SCH (18:19)
[2025-04-05] MEDS ORDERED: NORCO 10/325 TAB PO PRN (18:34)
[2025-04-05] MEDS: NORCO 10/325 TAB PO PRN (18:40)
[2025-04-05] MEDS: CRESTOR TAB 10 MG PO SCH (21:08)
[2025-04-05] MEDS: LIORESAL PO SCH ×2 (21:08→21:37)
[2025-04-05] MEDS: LANTUS SC SCH (21:09)
[2025-04-05] MEDS: SNACK - Diabetic Appropriate PO SCH (21:10)
[2025-04-05 21:11] VITALS: BMI 33.3
[2025-04-05] MEDS ORDERED: LEXAPRO ONE (21:48)
[2025-04-05] MEDS: LEXAPRO PO SCH (21:57)
[2025-04-06 06:05] LABS: BASOPHILS % (AUTO) 0.6 % (0.2-1.0); EOSINOPHILS # (AUTO) 0.2 x10^3/uL (0.0-0.2); HEMATOCRIT 30.4 % (36.0-47.0); HEMOGLOBIN 9.9 g/dL (12.0-16.0); LYMPHOCYTES % (AUTO) 45.8 % (21.0-51.0); MEAN CORPUSCULAR HEMOGLOBIN 26.7 pg (27.0-34.0); MEAN CORPUSCULAR HGB CONC 32.5 g/dL (33.0-35.0); MEAN CORPUSCULAR VOLUME 82.4 fL (80.0-100.0); MEAN PLATELET VOLUME 7.6 fL (7.4-11.0); MONOCYTES # (AUTO) 0.6 x10^3/uL (0.3-0.8); MONOCYTES % (AUTO) 8.9 % (0.0-13.0); NEUTROPHILS # (AUTO) 2.8 x10^3/uL (2.2-4.8); NEUTROPHILS % (AUTO) 41.7 % (42.0-75.0); PLATELET COUNT 250 X10^3/uL (150.0-450.0); RED BLOOD COUNT 3.69 X10^6/uL (3.5-5.4); RED CELL DISTRIBUTION WIDTH 14.8 % (11.6-16.5); WHITE BLOOD COUNT 6.6 X10^3/uL (3.6-10.0)
[2025-04-06 06:13] LABS: ALANINE AMINOTRANSFERASE 24 Units/L (12-78); ALBUMIN 3.4 g/dL (3.4-5.0); ALKALINE PHOSPHATASE 71 Units/L (46-116); ASPARTATE AMINO TRANSFERASE 35 Units/L (15-37); BLOOD UREA NITROGEN 25 mg/dL (7-18); CALCIUM 8.4 mg/dL (8.5-10.1); CARBON DIOXIDE 29.7 mmol/L (21-32); CHLORIDE 106 mmol/L (98-107); COR NA(FOR HYPERGLY) 143 mmol/L (136-145); GLUCOSE 118 mg/dL (65-99); MAGNESIUM 1.9 mg/dL (2.0-2.9); POTASSIUM 3.5 mmol/L (3.5-5.1); SODIUM 143 mmol/L (136-145); TOTAL PROTEIN 7.8 g/dL (6.4-8.2); eGFR NON BLACK RACES 36 (>60)
[2025-04-06] MEDS ORDERED: CONSULT PHARMACY - POTASSIUM & MAGNESIUM XX SCH (08:00)
[2025-04-06] MEDS: SYNTHROID 112 mcg TAB PO SCH (08:12)
[2025-04-06] MEDS: KLOR-CON 10 MEQ TAB PO NR (08:12)
[2025-04-06] MEDS: AMARYL TAB 4 MG PO SCH (08:12)
[2025-04-06] MEDS: ROCEPHIN VIAL 1 GRAM 1 G in NS 100 ML IV 100 ML IV SCH (08:12)
[2025-04-06] MEDS: MAG-OX TAB PO SCH (08:12)
[2025-04-06] MEDS ORDERED: LOTENSIN TAB 10 MG PO SCH (09:00)
[2025-04-06] MEDS ORDERED: LEXAPRO PO SCH (09:00)
[2025-04-06] MEDS: LOVENOX INJ 40 MG SYR SC SCH (10:46)
[2025-04-06] MEDS: COLACE CAP 100 MG PO SCH (10:46)
--- NOTE | 2025-04-06 14:01 | DR.H&P ---
H&P History & Physical for Day of: H&P Date: 04/06/25 Chief Complaint Chief Complaint: dysuria weakness History of Present Illness History of Present Illness: Patient is a 80-year-old female with past medical history of hypothyroidism, hyperlipidemia, type 2 diabetes mellitus, arthritis, presenting with weakness and dysuria. She reports symptoms have been getting worse over the past 2 to 3 days. She was seen in clinic and stated that she was feeling "shaky". She was sent to the ER for further evaluation. Labs/imaging: WBC 6.6, hemoglobin 9.9, platelets 250, sodium 143, potassium 3.5, creatinine 1.861.50, glucose 118, UA with positive leuks and WBC. Urine culture pending. Patient was admitted for acute cystitis, dehydration, ALEXA. She was started on IV antibiotics Rocephin daily. IV fluids normal saline at a 80 mL/h. Home medications were restarted. She is feeling better this morning. She is otherwise continue with current treatment plan. Continue closely monitor follow-up labs in the morning. Past Medical History Past Medical History: Anxiety, Arthritis, Diabetes, Dyslipidemia, Migraines and Hypothyroidism Past Surgical History Surgical History: Cholecystectomy and Ortho Surgery Family History Family Medical History: Cancer Social History Does patient currently use any type of tobacco product: No Have you used tobacco products in the last 12 months: No Type of Tobacco Use: None Does any household member use tobacco: No Alcohol Use: None Drug Use: None Allergies Allergies Allergy/AdvReac Type Severity Reaction Status Date / Time carisoprodol (Soma) Allergy Unknown Dizziness; Verified 04/05/25 15:36 Itching morphine (MS Contin) Allergy Unknown Verified 04/05/25 15:36 trazodone (Desyrel) Allergy Unknown Verified 04/05/25 15:36 Labs 04/06/25 05:19 04/06/25 05:19 Labs: Laboratory WBC 6.6 X10^3/uL (3.6-10.0) 04/06/25 05:19 RBC 3.69 X10^6/uL (3.5-5.4) 04/06/25 05:19 Hgb 9.9 g/dL (12.0-16.0) L 04/06/25 05:19 Hct 30.4 % (36.0-47.0) L 04/06/25 05:19 MCV 82.4 fL (80.0-100.0) 04/06/25 05:19 MCH 26.7 pg (27.0-34.0) L 04/06/25 05:19 MCHC 32.5 g/dL (33.0-35.0) L 04/06/25 05:19 RDW 14.8 % (11.6-16.5) 04/06/25 05:19 Plt Count 250 X10^3/uL (150.0-450.0) 04/06/25 05:19 MPV 7.6 fL (7.4-11.0) 04/06/25 05:19 Neut % (Auto) 41.7 % (42.0-75.0) L 04/06/25 05:19 Lymph % (Auto) 45.8 % (21.0-51.0) 04/06/25 05:19 [place] % (Auto) 8.9 % (0.0-13.0) 04/06/25 05:19 Eos % (Auto) 3.0 % (0.9-2.9) H 04/06/25 05:19 Baso % (Auto) 0.6 % (0.2-1.0) 04/06/25 05:19 Neut # (Auto) 2.8 x10^3/uL (2.2-4.8) 04/06/25 05:19 Lymph # (Auto) 3.0 X10^3/uL (1.3-2.9) H 04/06/25 05:19 [place] # (Auto) 0.6 x10^3/uL (0.3-0.8) 04/06/25 05:19 Eos # (Auto) 0.2 x10^3/uL (0.0-0.2) 04/06/25 05:19 Baso # (Auto) 0.0 X10^3/uL (0.0-0.1) 04/06/25 05:19 Absolute Nucleated RBC 0.0 /100WBC 04/06/25 05:19 Sodium 143 mmol/L (136-145) 04/06/25 05:19 Corrected Sodium 143 mmol/L (136-145) 04/06/25 05:19 Potassium 3.5 mmol/L (3.5-5.1) 04/06/25 05:19 Chloride 106 mmol/L (98-107) 04/06/25 05:19 Carbon Dioxide 29.7 mmol/L (21-32) 04/06/25 05:19 BUN 25 mg/dL (7-18) H 04/06/25 05:19 Creatinine 1.50 mg/dL (0.55-1.02) H 04/06/25 05:19 Est GFR (MDRD) Af Amer 43 (>60) L 04/06/25 05:19 Est GFR (MDRD) Non-Af 36 (>60) L 04/06/25 05:19 Glucose 118 mg/dL (65-99) H 04/06/25 05:19 POC Glucose (mg/dL) 113 mg/dL (65-99) H 04/06/25 05:12 Calcium 8.4 mg/dL (8.5-10.1) L 04/06/25 05:19 Corrected Calcium TNP 04/06/25 05:19 Magnesium 1.9 mg/dL (2.0-2.9) L 04/06/25 05:19 Total Bilirubin 0.20 mg/dL (0.2-1.0) 04/06/25 05:19 AST 35 Units/L (15-37) 04/06/25 05:19 ALT 24 Units/L (12-78) 04/06/25 05:19 Alkaline Phosphatase 71 Units/L (46-116) 04/06/25 05:19 Creatine Kinase 398 Units/L (26-192) H 04/05/25 16:00 Troponin I High Sens 26.0 ng/L (4.0-60.0) 04/05/25 16:00 B-Natriuretic Peptide 70.3 pg/mL (0-79) 04/05/25 16:00 Total Protein 7.8 g/dL (6.4-8.2) 04/06/25 05:19 Albumin 3.4 g/dL (3.4-5.0) 04/06/25 05:19 Globulin 4.4 g/dL (2.5-4.5) 04/06/25 05:19 Albumin/Globulin Ratio 0.8 Ratio (1.1-2.1) L 04/06/25 05:19 Specimen Type Catherized urine 04/05/25 16:36 Urine Color Yellow (YELLOW) 04/05/25 16:36 Urine Appearance Clear (CLEAR) 04/05/25 16:36 Urine pH 6.0 (5.0 - 8.0) 04/05/25 16:36 Ur Specific [place] 1.010 (1.000-1.030) 04/05/25 16:36 Urine Protein 1+ (NEGATIVE) 04/05/25 16:36 Urine Glucose (UA) Negative (NEGATIVE) 04/05/25 16:36 Urine Ketones Negative (NEGATIVE) 04/05/25 16:36 Urine Blood Negative (NEGATIVE) 04/05/25 16:36 Urine Nitrite Negative (NEGATIVE) 04/05/25 16:36 Urine Bilirubin Negative (NEGATIVE) 04/05/25 16:36 Urine Urobilinogen Normal (NORMAL) 04/05/25 16:36 Ur Leukocyte Esterase 2+ (NEGATIVE) 04/05/25 16:36 Urine RBC 0-2 /HPF (0-3) 04/05/25 16:36 Urine WBC 3-5 /HPF (0-5) 04/05/25 16:36 Ur Squamous Epith Cells Moderate /HPF (NEGATIVE) 04/05/25 16:36 Ur Renal Epithelial Cell Few /HPF (NEGATIVE) 04/05/25 16:36 Urine Bacteria Trace /HPF (NEGATIVE) 04/05/25 16:36 Ur Culture Indicated? No/not indicated 04/05/25 16:36 Review of Systems Constitutional: Weakness Eyes: No Symptoms Reported ENT: No Symptoms Reported Respiratory: No Symptoms Reported Cardiovascular: No Symptoms Reported Gastrointestinal: No Symptoms Reported Genitourinary: Dysuria Musculoskeletal: No Symptoms Reported Skin: No Symptoms Reported Neurological: No Symptoms Reported Physical Exam Vital Signs: Vital Signs Temperature 98.1 F Temperature 98.1 F Pulse Rate [Radial] 68 Pulse Rate [Radial] 68 Respiratory Rate 19 Respiratory Rate 16 Respiratory Rate 20 Respiratory Rate 18 Blood Pressure [Right Arm] 136/82 Blood Pressure [Left Arm] 129/59 O2 Sat by Pulse Oximetry 97 O2 Sat by Pulse Oximetry 100 Oriented: Normal Eyes: Normal Ear: Normal Nose: Normal Throat: Normal Respiratory: Clear Throughout Cardiovascular: Normal : Normal Auscultation: Bowel Sounds: Normal Palpation: Normal Tenderness: Normal Skin: Normal Musculoskeletal: Normal Psychiatric: Normal Mood Description: Calm and Appropriate Affect: Normal Speech Pattern: Clear and Appropriate Assessment/Plan (1) Acute cystitis: Qualifiers: Hematuria presence: without hematuria Qualified Code(s): N30.00 - Acute cystitis without hematuria Status: Acute Plan: IV Rocephin Urine culture pending (2) Dehydration: Status: Acute Plan: IVF (3) ALEXA (acute kidney injury): Status: Acute Review H&P Reviewed: Yes Patient was examined?: Yes
[2025-04-06] MEDS ORDERED: MILK OF MAGNESIA PO PRN (17:02)
[2025-04-06] MEDS: VALIUM PO PRN (18:34)
[2025-04-06] MEDS ORDERED: LEXAPRO ONE (21:19)
[2025-04-06] MEDS: LEXAPRO PO SCH (21:31)
[2025-04-07 05:35] LABS: BASOPHILS % (AUTO) 0.2 % (0.2-1.0); EOSINOPHILS # (AUTO) 0.1 x10^3/uL (0.0-0.2); EOSINOPHILS % (AUTO) 1.7 % (0.9-2.9); HEMATOCRIT 31.3 % (36.0-47.0); LYMPHOCYTES # (AUTO) 1.5 X10^3/uL (1.3-2.9); LYMPHOCYTES % (AUTO) 23.4 % (21.0-51.0); MEAN CORPUSCULAR HEMOGLOBIN 26.4 pg (27.0-34.0); MEAN CORPUSCULAR VOLUME 82.3 fL (80.0-100.0); MEAN PLATELET VOLUME 7.6 fL (7.4-11.0); MONOCYTES # (AUTO) 0.5 x10^3/uL (0.3-0.8); MONOCYTES % (AUTO) 6.9 % (0.0-13.0); NEUTROPHILS # (AUTO) 4.5 x10^3/uL (2.2-4.8); NEUTROPHILS % (AUTO) 67.8 % (42.0-75.0); PLATELET COUNT 250 X10^3/uL (150.0-450.0); WHITE BLOOD COUNT 6.6 X10^3/uL (3.6-10.0)
[2025-04-07 05:46] LABS: ALANINE AMINOTRANSFERASE 30 Units/L (12-78); ALBUMIN 3.2 g/dL (3.4-5.0); ALKALINE PHOSPHATASE 76 Units/L (46-116); ASPARTATE AMINO TRANSFERASE 48 Units/L (15-37); BLOOD UREA NITROGEN 18 mg/dL (7-18); CALCIUM 8.1 mg/dL (8.5-10.1); CARBON DIOXIDE 28.2 mmol/L (21-32); CHLORIDE 107 mmol/L (98-107); COR CA(FOR HYPOALB) 8.7 mg/dL (8.5-10.1); CREATININE 1.31 mg/dL (0.55-1.02); GLUCOSE 85 mg/dL (65-99); MAGNESIUM 1.7 mg/dL (2.0-2.9); POTASSIUM 3.8 mmol/L (3.5-5.1); SODIUM 145 mmol/L (136-145); TOTAL PROTEIN 7.9 g/dL (6.4-8.2); eGFR NON BLACK RACES 42 (>60)
[2025-04-07] MEDS ORDERED: CONSULT PHARMACY - POTASSIUM & MAGNESIUM XX SCH ×2 (06:00→08:00)
[2025-04-07] MEDS: MAG-OX TAB PO SCH (08:49)
[2025-04-07] MEDS: K-DUR TAB 20 MEQ PO ONE (08:49)
[2025-04-07] MEDS ORDERED: D50W ABBOJECT SYR IV ONE ×2 (18:15→18:22)
[2025-04-07] MEDS: D50W ABBOJECT SYR IV ONE (18:43)
[2025-04-07] MEDS: SNACK - Diabetic Appropriate PO SCH (20:05)
[2025-04-07] MEDS ORDERED: LEXAPRO ONE (20:22)
[2025-04-07] MEDS: LANTUS SC SCH (21:25)
[2025-04-08 05:54] LABS: BASOPHILS % (AUTO) 0.3 % (0.2-1.0); EOSINOPHILS # (AUTO) 0.3 x10^3/uL (0.0-0.2); EOSINOPHILS % (AUTO) 3.7 % (0.9-2.9); HEMATOCRIT 31.2 % (36.0-47.0); HEMOGLOBIN 10.2 g/dL (12.0-16.0); LYMPHOCYTES # (AUTO) 2.5 X10^3/uL (1.3-2.9); LYMPHOCYTES % (AUTO) 33.9 % (21.0-51.0); MEAN CORPUSCULAR HEMOGLOBIN 26.9 pg (27.0-34.0); MEAN CORPUSCULAR HGB CONC 32.6 g/dL (33.0-35.0); MEAN CORPUSCULAR VOLUME 82.5 fL (80.0-100.0); MEAN PLATELET VOLUME 7.7 fL (7.4-11.0); MONOCYTES # (AUTO) 0.4 x10^3/uL (0.3-0.8); MONOCYTES % (AUTO) 5.5 % (0.0-13.0); NEUTROPHILS # (AUTO) 4.2 x10^3/uL (2.2-4.8); NEUTROPHILS % (AUTO) 56.6 % (42.0-75.0); PLATELET COUNT 268 X10^3/uL (150.0-450.0); RED BLOOD COUNT 3.78 X10^6/uL (3.5-5.4); RED CELL DISTRIBUTION WIDTH 15.2 % (11.6-16.5); WHITE BLOOD COUNT 7.4 X10^3/uL (3.6-10.0)
[2025-04-08 06:03] LABS: ALBUMIN 3.3 g/dL (3.4-5.0); CALCIUM 8.1 mg/dL (8.5-10.1); CARBON DIOXIDE 28.2 mmol/L (21-32); COR CA(FOR HYPOALB) 8.7 mg/dL (8.5-10.1); CREATININE 1.17 mg/dL (0.55-1.02); MAGNESIUM 1.8 mg/dL (2.0-2.9); TOTAL PROTEIN 8.1 g/dL (6.4-8.2)
[2025-04-08] MEDS ORDERED: CONSULT PHARMACY - POTASSIUM & MAGNESIUM XX SCH (07:00)
[2025-04-08] MEDS: MAG-OX TAB PO SCH (08:21)
[2025-04-08] MEDS ORDERED: LOTENSIN TAB 10 MG PO SCH (10:00)
[2025-04-08] MEDS: LOTENSIN TAB 10 MG PO SCH (10:35)
[2025-04-08] MEDS: GLUTOSE 15 GEL ORAL PO PRN (16:35)
[2025-04-08] MEDS ORDERED: LEXAPRO ONE (21:01)
[2025-04-08] MEDS: RESTORIL CAP 15 MG PO PRN (21:09)
[2025-04-09 04:23] VITALS: PULSE 67
[2025-04-09 06:06] LABS: EOSINOPHILS # (AUTO) 0.3 x10^3/uL (0.0-0.2); HEMOGLOBIN 10.3 g/dL (12.0-16.0)
[2025-04-09 06:14] LABS: BASOPHILS % (AUTO) 0.4 % (0.2-1.0); HEMATOCRIT 32.3 % (36.0-47.0); LYMPHOCYTES # (AUTO) 2.6 X10^3/uL (1.3-2.9); LYMPHOCYTES % (AUTO) 36.2 % (21.0-51.0); MEAN CORPUSCULAR HEMOGLOBIN 26.6 pg (27.0-34.0); MEAN CORPUSCULAR HGB CONC 31.8 g/dL (33.0-35.0); MEAN CORPUSCULAR VOLUME 83.6 fL (80.0-100.0); MEAN PLATELET VOLUME 7.3 fL (7.4-11.0); MONOCYTES # (AUTO) 0.5 x10^3/uL (0.3-0.8); MONOCYTES % (AUTO) 6.4 % (0.0-13.0); NEUTROPHILS # (AUTO) 3.8 x10^3/uL (2.2-4.8); PLATELET COUNT 292 X10^3/uL (150.0-450.0); RED BLOOD COUNT 3.87 X10^6/uL (3.5-5.4); RED CELL DISTRIBUTION WIDTH 15.6 % (11.6-16.5); WHITE BLOOD COUNT 7.2 X10^3/uL (3.6-10.0)
[2025-04-09 06:16] LABS: ALANINE AMINOTRANSFERASE 25 Units/L (12-78); ALBUMIN 3.4 g/dL (3.4-5.0); ALKALINE PHOSPHATASE 72 Units/L (46-116); ASPARTATE AMINO TRANSFERASE 27 Units/L (15-37); BLOOD UREA NITROGEN 14 mg/dL (7-18); CALCIUM 8.4 mg/dL (8.5-10.1); CHLORIDE 108 mmol/L (98-107); COR NA(FOR HYPERGLY) 145 mmol/L (136-145); CREATININE 1.23 mg/dL (0.55-1.02); GLUCOSE 151 mg/dL (65-99); POTASSIUM 4.1 mmol/L (3.5-5.1); SODIUM 144 mmol/L (136-145); TOTAL PROTEIN 8.2 g/dL (6.4-8.2); eGFR NON BLACK RACES 45 (>60)
[2025-04-09 07:42] VITALS: BP 153/74; TEMP 98.1; O2SAT 97
[2025-04-09 14:13] VITALS: RESP 18
== END 2025-04-09 12:00 | disposition home health service (06) ==
LOC: MED/SURG 15:27 → ER 15:27 → MED/SURG 17:54
PROVIDERS: ADMIT Family Medicine; ATTEND Family Medicine
DX: I95.1 Orthostatic hypotension; Z79.4 Long term (current) use of insulin; E83.42 Hypomagnesemia; R06.02 Shortness of breath; N17.8 Other acute kidney failure; R94.31 Abnormal electrocardiogram [ECG] [EKG]; E03.8 Other specified hypothyroidism; R94.4 Abnormal results of kidney function studies; F41.8 Other specified anxiety disorders; E78.5 Hyperlipidemia, unspecified; E86.0 Dehydration; R53.1 Weakness; E11.65 Type 2 diabetes mellitus with hyperglycemia; N30.00 Acute cystitis without hematuria; R42 Dizziness and giddiness; R26.89 Other abnormalities of gait and mobility